=== PATIENT | female | born 1960 | race Caucasian/White ===

== ENCOUNTER 2019-01-27 10:24 | Inpatient (IN) ==
--- NOTE | 2019-01-27 08:50 | Discharge Summary ---
<Elmo Jose - Last Filed: 01/29/19 06:32> Orders not resulted at time of discharge: Pending orders 01/27/19 11:09 US anesthesia pain block [US] Stat 01/27/19 13:10 Surgical Pathology [PTH] Routine Date of Encounter: 01/29/19 - Discharge Diagnosis (1) Acute blood loss anemia Priority: Primary Status: Acute - Hospital Course Hospital course: Ms. Norris is a 58 year old female - Time Spent with Patient Total time spent providing and/or coordinating discharge services: - Discharge Medications Prescriptions: New RX: OxyCODONE Immed Rel [Roxicodone 5 MG] 5 mg PO Q6HR PRN 5 Days #20 tablet PRN Reason: Severe Pain RX: Aspirin Enteric Coated [Aspirin EC] 325 mg PO BID 10 Days #20 tablet.dr RX: Docusate Sodium [Colace] 100 mg PO BID 5 Days #10 capsule Continue RX: Omeprazole [PriLOSEC] 20 mg PO DAILY RX: LORazepam [Ativan] 1 mg PO DAILY PRN PRN Reason: Anxiety RX: carBAMazepine [Tegretol] 600 mg PO BID RX: Escitalopram [Lexapro] 20 mg PO DAILY RX: Supplies [SUPPLIES] 1 each .ROUTE QMONTH #10 each RX: Supplies [SUPPLIES] 1 each .ROUTE DAILY #4 each RX: Venlafaxine HCl [Effexor Xr] 75 mg PO DAILY #30 cap.er.24h RX: Letrozole [Femara] 2.5 mg PO DAILY #30 tablet RX: Alendronate Sodium [Fosamax] 70 mg PO TAVARES RX: Calcium Carbonate [Calcium] 500 mg PO DAILY RX: Albuterol Neb [Proventil Neb] 2.5 mg IH TID PRN PRN Reason: Shortness Of Breath RX: Multivitamin [One Daily] 1 each PO DAILY Home Medications: RX: LORazepam [Ativan] 1 mg PO DAILY PRN 03/16/16 [History] RX: Omeprazole [PriLOSEC] 20 mg PO DAILY 03/16/16 [History] RX: carBAMazepine [Tegretol] 600 mg PO BID 03/16/16 [History] RX: Escitalopram [Lexapro] 20 mg PO DAILY 06/01/16 [History] RX: Supplies [SUPPLIES] 1 each .ROUTE QMONTH #10 each 06/06/17 [Rx] RX: Supplies [SUPPLIES] 1 each .ROUTE DAILY #4 each 08/01/18 [Rx] RX: Venlafaxine HCl [Effexor Xr] 75 mg PO DAILY #30 cap.er.24h 10/18/18 [Rx] RX: Letrozole [Femara] 2.5 mg PO DAILY #30 tablet 11/26/18 [Rx] RX: Albuterol Neb [Proventil Neb] 2.5 mg IH TID PRN 01/27/19 [History] RX: Alendronate Sodium [Fosamax] 70 mg PO TAVARES 01/27/19 [History] RX: Calcium Carbonate [Calcium] 500 mg PO DAILY 01/27/19 [History] RX: Multivitamin [One Daily] 1 each PO DAILY 01/27/19 [History] RX: Aspirin Enteric Coated [Aspirin EC] 325 mg PO BID 10 Days #20 tablet. 01/29/19 [Rx] RX: Docusate Sodium [Colace] 100 mg PO BID 5 Days #10 capsule 01/29/19 [Rx] RX: OxyCODONE Immed Rel [Roxicodone 5 MG] 5 mg PO Q6HR PRN 5 Days #20 tablet 01/29/19 [Rx] Allergies/Adverse Reactions: Allergy/AdvReac Type Severity Reaction Status Date / Time bupropion [From Wellbutrin] Allergy Anaphylaxis Verified 01/27/19 11:24 celecoxib [From Celebrex] Allergy See Verified 01/27/19 11:24 Comments Penicillins [PCN] Allergy Hives Verified 01/27/19 11:24 ANAPHYLAXIS Pneumococcal Vaccine Allergy Rash Verified 01/27/19 11:24 Sulfa (Sulfonamide Allergy See Verified 01/27/19 11:24 Antibiotics) Comments Date of admission: 01/28/19 19:03 Primary care physician: Tomas Hearn DO Consults: 01/27/19 17:05 Consult to Nutrition [CONS] Routine Comment: Consulting Provider: NUTRITION Reason for Dietary Consult: Other Other:: Proper nutrition to facilitate wound healing Consult to Occupational Therapy [CONS] Routine Comment: Evaluate, develop and implement POC Reason for Consult: post knee surgery Does patient have active BEDREST order?: No Is patient medically & hemodynamically stable?: Yes Consult to Orthopedic Navigator [CONS] [CONS] Routine Consult to Physical Therapy [CONS] Routine Comment: Evaluate, develop and impliment POC Reason for Consult: post knee surgery Does patient have active BEDREST order?: No Is patient medically & hemodynamically stable?: Yes Consult to Software Support Technician [CONS] Routine Reason for SW Consult: post op joint replacement RT Post Op Consult [CONS] Routine Labs on day of discharge: Labs from last 24 hours 01/29/19 01/29/19 01/28/19 05:20 05:20 09:21 WBC 9.1 RBC 2.94 L Hgb 9.4 L Hct 26.9 L MCV 91.5 MCH 32.0 MCHC 34.9 RDW 12.7 Plt Count 184 MPV 9.6 Immature Gran % 0.4 Seg Neutrophils % 79.9 Lymphocytes % 10.7 Monocytes % 8.8 Eosinophils % 0.0 Basophils % 0.2 Neutrophils # 7.3 Lymphocytes # 1.0 Monocytes # 0.8 Eosinophils # 0.0 Basophils # 0.0 Sodium 129 L 136 Potassium 3.5 3.6 Chloride 93 L 97 L Carbon Dioxide 31 H 32 H BUN 6 8 Creatinine 0.46 L 0.55 L Est GFR ( Amer) > 60 > 60 Est GFR (Non-Af Amer) > 60 > 60 BUN/Creatinine Ratio 13 15 Glucose 154 H 161 H Calculated Osmolality 269 L 284 Calcium 8.8 8.6 01/28/19 09:21 WBC 8.1 RBC 3.26 L Hgb 10.3 L Hct 31.2 L MCV 95.7 MCH 31.6 MCHC 33.0 RDW 13.1 Plt Count 232 MPV 9.7 Immature Gran % 0.4 Seg Neutrophils % 79.5 Lymphocytes % 14.8 Monocytes % 5.0 Eosinophils % 0.1 Basophils % 0.2 Neutrophils # 6.4 Lymphocytes # 1.2 Monocytes # 0.4 Eosinophils # 0.0 Basophils # 0.0 Sodium Potassium Chloride Carbon Dioxide BUN Creatinine Est GFR ( Amer) Est GFR (Non-Af Amer) BUN/Creatinine Ratio Glucose Calculated Osmolality Calcium - Impressions ITS Impressions Knee X-Ray 01/27/19 01:00 IMPRESSION: Total knee arthropasty without acute hardware complication. D/ / Jake Eaton MD / Jake Eaton MD Interpreting Provider: Jake Eaton MD - Patient Status Disposition: Home Health Service Condition: Fair - Discharge Instructions Follow Up With: Valeria Andrew PAC [Physician Button Attaching Machine Operator] - 02/06/19 9:00 am Elmo Jose MD [Partnered Physician] - 02/26/19 5:10 pm Tomas Hearn DO [Primary Care Provider] - 02/04/19 11:30 am Additional Instructions: Discharge Instructions: Total Knee Replacement Please call [facility] ([phone]), your Primary Care Physician, or report to the Emergency Room if you have any of the following symptoms: Nausea, vomiting, fever greater that 101.5, swelling, chest pain, shortness of breath, increased pain/redness/drainage/odor for your incision site, numbness/tingling, or any other concerning symptoms. ACTIVITY:Weight-bearing as tolerated. You may progress off support (crutches or walker) as tolerated. Incentive Spirometer 10 times an hour. MEDICATIONS: Upon discharge resume your home medications. Take all the medications as prescribed. Take a stool softener if taking narcotic pain medications. Stool softeners are only effective if you drink enough fluids. Drink 6-8 glass of water or fluids a day, unless this is not allowed for another health problem. Despite using stool softeners, if you haven't had a bowel movement in 3 days, please switch to a gentle laxative. Gentle laxatives are sold over the counter. You should have a bowel movement within 24 hours, if not call the office. You will be discharged from the hospital with a prescription for pain medication. You are encouraged to decrease the use of narcotic pain medication as tolerated. Should you require a refill, please call the office. [facility] prescribes narcotic pain medication for only 4-6 weeks after surgery. If you require pain medication beyond this time period, you may be referred to your Primary Care Physician or to the Pain Clinic for further evaluation. Plan ahead for refills on pain medication as many narcotics either need to be picked up at the office or mailed. It is best to call 48-72 hours in advance of needing a prescription refill so you don't run out of medication. To help control the post-operative pain, you may take NSAIDs (Aleve,Advil, Motrin, Ibuprofen, Naprosyn) or Tylenol as prescribed on the bottle in addition to the pain medication. ANTICOAGULATION (blood thinners): Continue your Aspirin, Lovenox or Coumadin as prescribed to help prevent a blood clot in the leg or in the lungs. As long as your incision remains dry and you tolerate the NSAIDs (Aleve, Advil, Motrin, ibuprofen, naprosyn), it is OK to use the NSAIDS while you are taking your anticoagulation medication. Should your incision start to drain, stop the NSAID and contact our office. Common symptoms of blood clot in the legs include: localized pain, swelling, calf tenderness, redness or discoloration of the skin. Blood clot in the lung symptoms include: shortness of breath, rapid pulse, sweating, and chest pain that worsens with deep breathing, coughing up blood, lightheadedness, feelings of anxiety. If you experience any of these symptoms notify your physician immediately, go to the emergency room, or if having trouble breathing, call 911. WOUND CARE: Leave the dressing on for 7 to 10days. You may change the dressing if it becomes saturated greater than 50%. Do not get the dressing wet at anytime. Wash your hands with antibacterial soap, rinse and dry prior to any wound care. If you have lina the visiting nurse or rehab facility can remove the stapes 10-14 days after surgery and place steri-strips across the wound. Leave the steri-strips in place until they fall off on their won. You may let water from the shower run on top of the steri-strips. If you do not have a visiting nurse or rehab facility, you will need to return to the office at 10-14 days for the lina to be removed. If you have itching or redness around the dr essing call the office. FOLLOW-UP: Please follow up with your surgeon in the orthopedic clinic in 4 weeks from the day of surgery. If you have lina that need to be removed, you will need to come back to the office in 10-14 days from the day of surgery. <Valeria Andrew - Last Filed: 01/30/19 12:36> Date of Encounter: 01/30/19 Time of Encounter: 09:00 - Discharge Diagnosis (1) Arthritis of right knee Priority: Primary Status: Chronic (2) Status post total right knee replacement Priority: Primary Status: Acute (3) History of breast cancer Priority: Secondary Status: Chronic (4) Tobacco dependence Priority: Secondary Status: Chronic (5) COPD (chronic obstructive pulmonary disease) Priority: Secondary Status: Chronic Qualifiers: COPD type: unspecified COPD Qualified Code(s): J44.9 - Chronic obstructive pulmonary disease, unspecified (6) Prediabetes Priority: Secondary Status: Chronic (7) Osteoporosis Priority: Secondary Status: Chronic Qualifiers: Osteoporosis type: unspecified Presence of current pathological fracture: unspecified Qualified Code(s): M81.0 - Age-related osteoporosis without current pathological fracture (8) Obesity Priority: Secondary Status: Chronic Qualifiers: Obesity type: unspecified obesity type Obesity classification: unspecified obesity classification Serious obesity comorbidity presence: unspecified whether serious comorbidity present Qualified Code(s): E66.9 - Obesity, unspecified (9) Acute blood loss anemia Priority: Primary Status: Acute (10) Hyponatremia Priority: Primary Status: Acute - Hospital Course Hospital course: Ms. Norris is a 58 year old female Date of procedure: 01/27/19 Pre-op diagnosis: Right knee arthritis Post-op diagnosis: same Procedure: Right robotic-assisted Total knee replacement POD#3- Patient seen at bedside. A&Ox3 Dressing and incision c/d/i No calf tenderness, erythema, or warmth. Neurovascularly intact b/l LE. Labwork, vitals, and medications reviewed. Pain control: Adequate Participating in PT. All questions and concerns addressed. Educated on use of incentive spirometer, ambulation, and hydration. Patient educated on post-operative restrictions and care. Addressed: Patient developed hyponatremia postoperatively with mild improvement with 2 L fluid restriction. We will continue this fluid restriction after discharge and recheck labs for improvement. Patient also to see PCP next week for check up . Patient educated on warning signs necessitating urgent/emergent evaluation with relation to her lab work D/C plan: Home with home health today - Time Spent with Patient Total time spent providing and/or coordinating discharge services: Primary care physician: Tomas Hearn DO Discharging clinician: Elmo Jose Anticipated date of discharge: 01/30/19 - VTE Documentation of Mechanical Device: Venous foot pump, device - Patient Status Functional capacity at discharge: uses cane/walker Overall status at discharge: patient is progressing back to baseline - Diet and Activity Activity: as per physical therapy Diet: advance to your usual diet
[~2019-01-27 10:24] MED LIST: Ropivacaine/PF 0.5% 24.62 ML, EPINEPHrine 0.25 MG, Ketorolac 15 MG, Water for inj. (ste... IR ONE
[2019-01-27] MEDS ORDERED: Acetaminophen IV 1,000 MG/100 ML INFUS..BTL ONE (11:02)
--- NOTE | 2019-01-27 11:07 | Anesthesia Evaluation PreOp ---
Date of Encounter: 01/27/19 Time of Encounter: 11:04 - Past History Planned Operation: Right robotic total knee arthroplasty Cardiac History: Denies any Significant Hx Pulmonary History: Smoker, Pack/yr (43), COPD HOME HEALTH AIDE CAREGIVER History: Other (anxiety, depression, chronic back pain) Other Medical History: Other (hx of breast ca) Anesthesia History: No Prior Anesthetic Complications, Past Anesthesia (Aport insertion and removal, R mastectomy) Alcohol Use: none Drug use: none Medications and Allergies Albuterol Sulfate [Proair Hfa] 2 puff IH Q4H PRN 03/16/16 [History] LORazepam [Ativan] 1 mg PO BID PRN 03/16/16 [History] Omeprazole [PriLOSEC] 20 mg PO DAILY 03/16/16 [History] carBAMazepine [Tegretol] 600 mg PO BID 03/16/16 [History] Vitamin E (Dl,Tocopheryl Acet) [Vitamin E] 400 unit PO DAILY 04/07/16 [History] Escitalopram [Lexapro] 20 mg PO DAILY 06/01/16 [History] Calcium Carbonate/Vitamin D3 [Calcium 600 + Vit D Tablet] 1 each PO BID #60 tablet 02/22/17 [Rx] Supplies [SUPPLIES] 1 each .ROUTE QMONTH #10 each 06/06/17 [Rx] Alendronate Sodium [Fosamax] 70 mg PO QWEEK #12 tab 06/04/18 [Rx] Supplies [SUPPLIES] 1 each .ROUTE DAILY #4 each 08/01/18 [Rx] Venlafaxine HCl [Effexor Xr] 75 mg PO DAILY #30 cap.er.24h 10/18/18 [Rx] Letrozole [Femara] 2.5 mg PO DAILY #30 tablet 11/26/18 [Rx] OxyCODONE/APAP 5/325 [Percocet 5/325 MG] 1 each PO HS 30 Days #30 tablet 11/27/18 [Rx] Allergy/AdvReac Type Severity Reaction Status Date / Time bupropion [From Wellbutrin] Allergy Anaphylaxis Verified 01/27/19 11:24 celecoxib [From Celebrex] Allergy See Verified 01/27/19 11:24 Comments Penicillins [PCN] Allergy Hives Verified 01/27/19 11:24 ANAPHYLAXIS Pneumococcal Vaccine Allergy Rash Verified 01/27/19 11:24 Sulfa (Sulfonamide Allergy See Verified 01/27/19 11:24 Antibiotics) Comments - Meds/Allergy Pre-op Review Medications Reviewed: Yes Allergies Reviewed: Yes Beta Blockers on Current Med List: No Anesthesia Results - Labs Laboratory Tests 06/29/16 12/19/18 01/08/19 09:28 13:48 08:46 WBC 6.1 Hgb 12.4 Hct 36.1 Plt Count 192 PT INR APTT Sodium Potassium Chloride Carbon Dioxide BUN Whole Bld Creatinine 0.7 Creatinine POC Creatinine 0.60 BUN/Creatinine Ratio Glucose Est Mean Plasma Glucose Hemoglobin A1c 01/08/19 01/21/19 01/21/19 08:46 11:44 11:44 WBC Hgb Hct Plt Count PT 11.6 INR 1.0 APTT 35.6 Sodium 140 Potassium 3.5 Chloride 102 Carbon Dioxide 30 H BUN 8 Whole Bld Creatinine Creatinine 0.56 L POC Creatinine BUN/Creatinine Ratio 14 Glucose 126 H Est Mean Plasma Glucose 131 Hemoglobin A1c 6.2 H - Imaging EKG: report reviewed (SINUS RHYTHM ST DEVIATION AND MODERATE T-WAVE ABNORMALITY, CONSIDER LATERAL ISCHEMIA [-0.1+ mV T WAVE IN I/aVL/V5/V6] Electronically Signed On 01-22-2019 8:34:13 EDT by Jose Turk) Anesthesia Exam O2 Sat Height 1.68 m Weight 99.79 kg O2 Sat by Pulse Oximetry 93 Vital Signs Temp Pulse Resp BP Pulse Ox 98.4 F 83 18 137/80 93 01/27/19 10:59 01/27/19 10:59 01/27/19 10:59 01/27/19 10:59 01/27/19 10:59 Weight: 99kg NPO (# of Hours): >8 - HEENT Pupil (Motor): Pupils equal, EOMI Mallampati: II Teeth: Edentulous Oral Opening: Greater than 3 - HOME HEALTH AIDE CAREGIVER LOC: Oriented HOME HEALTH AIDE CAREGIVER Motor: Normal RUE, Normal LUE, Normal RLE, Normal LLE, Normal Face HOME HEALTH AIDE CAREGIVER Sensory: Normal: RUE, LUE, RLE, LLE, Face - Cardiac Rhythm: Regular - Pulmonary Breath Sounds: bilateral Clear Respiratory Effort: Symmetrical Anesthesia Assess/Plan ASA Score: 3 Level of consciousness: Cooperative Anesthetic Plan: General Regional Nerve Block Plan: Adductor canal (Right) Monitoring Plan: Standard Monitors Recovery Plan: PACU
--- NOTE | 2019-01-27 11:08 | History & Physical Report ---
Date of Encounter: 01/27/19 Time of Encounter: 11:07 24 Hour HP Update - Instructions Instructions: If the History and Physical is less than 30 days old and was completed prior to A.M. admission and or procedure and has NOT been updated on calendar day of procedure please complete this update prior to performing procedure. - Update Patient reports changes in Medical Condition: No Changes in examination, assessment, or condition: No Changes in Medication: No Preop tests/diagnostics Reviewed: Yes Surgery Remains Indicated: Yes Consent for Planned Operative Procedure(s) Verified: Yes - Pre-Operative Checklist Preoperative Checklist Indicated: No Prophylactic Antibiotic Ordered: Yes Is VTE Prophylaxis Indicated?: Yes
[2019-01-27] MEDS ORDERED: *HR* OxyCODONE Immed Rel 5 MG TABLET PO PRN (11:12)
[2019-01-27] MEDS ORDERED: *HR* Promethazine 25 MG/ML VIAL IVP PRN ×2 (11:12→17:05)
[2019-01-27] MEDS ORDERED: Ondansetron 4 MG/2 ML VIAL IVP ONE (11:12)
[2019-01-27] MEDS ORDERED: Ringers Solution, Lactated 1,000 ML IVC SCH ×2 (11:15→17:05)
[2019-01-27] MEDS ORDERED: Clindamycin 900 MG/50 ML 900 MG/50 ML IV.SOLN IVPB ONE (11:19)
[2019-01-27] MEDS ORDERED: Albuterol 2.5 MG/3 ML NEBULIZER IH ONE (11:22)
[2019-01-27] MEDS ORDERED: *HR* Midazolam HCl 2 MG/2 ML VIAL ONE (11:26)
[2019-01-27] MEDS ORDERED: *HR* FentaNYL (PF) 100 MCG/2 ML VIAL ONE ×2 (11:26→12:31)
[2019-01-27] MEDS ORDERED: Lidocaine -MPF 2% 2 ML VIAL ONE (11:29)
[2019-01-27] MEDS ORDERED: *HR* Propofol 200 MG/20 ML VIAL IVP ONE (11:29)
[2019-01-27] MEDS ORDERED: Ethanol\\Acetic Acid\\Na Ace\\Ben 1,000 ML IRRIG.SOLN IR ONE (11:47)
[2019-01-27] MEDS ORDERED: ROPIVACAINE/PF/NS SYRINGE INTRAART ONE (11:50)
--- NOTE | 2019-01-27 12:19 | Anesthesia Procedures ---
Date of Encounter: 01/27/19 Time of Encounter: 12:12 Procedures: Anesthesia - Nerve Block Procedure Date: 01/27/19 Time: 12:12 Allergies/Adv Reactions: see emr Pre-op Diagnosis: right knee OA Surgical Procedure: right TKA robo Checklist: Correct Patient Identifier, Correct procedure, History checked Correct side: Right Blood Thinner: No Monitor Applied: EKG, BP, Pulse Oximetry Supplemental Oxygen via Nasal Cannula (L/min): 2 Sedation: Versed (mg): 2 Sedation: Fentanyl (mcg): 100 Indication: Post Op Analgesia Pre-op Neuro Deficits: No Block Type: Other (adductor canal 20ml 0.25% ropi w/ 8mg decadron) Catheter placed: No Sterile Technique: Yes Ultrasound used: Yes Anatomy identified: Yes Visual spread of Local: Yes Neuro Stimulation: No Blood on Needle Aspiration: No Smooth Injection of Local: Yes Pain with Injection of Local: No Prep: Chlorhexadine Needle: 21 x 100 mm Stimuplex Local: Ropivacaine, Other (decadron) Volume (cc): 20 Number of Attempts: 1 Complications: None/effective block Vitals: Vital Signs/O2 Sat/Glucose, Most Recent Temp Pulse Resp BP Pulse Ox 98.4 F 81 16 141/86 98 01/27/19 10:59 01/27/19 12:13 01/27/19 12:13 01/27/19 12:13 01/27/19 12:13 Blood Glucose* 124
[2019-01-27] MEDS ORDERED: Ondansetron 4 MG/2 ML VIAL ONE (12:29)
[2019-01-27] MEDS ORDERED: Dexamethasone 4 MG/ML VIAL ONE ×2 (12:29→15:06)
[2019-01-27] MEDS ORDERED: Ketorolac 30 MG/ML VIAL ONE (12:30)
[2019-01-27] MEDS ORDERED: *HR* HYDROMORPHONE 2 MG/ML VIAL ONE (12:36)
--- NOTE | 2019-01-27 13:08 | Orthopedic Operative Note ---
Date of procedure: 01/27/19 Pre-op diagnosis: Right knee arthritis Post-op diagnosis: same Procedure: Procedure: Right robotic-assisted Total knee replacement Estimated blood loss: 200 cc Hardware: Metal and polyethylene replacement. [place] Femur: 3 Tibia: 4 TS insert: 9 Patella: 36 Exam Under anesthesia: 8 degrees flexion contracture 8 degree varus as calculated by the robot full flexion and no instability Procedural Notes: Grade 4 arthritic changes medial compartment grade 3 arthritic changes patellofemoral joint lateral femoral condyle Operative procedure: The patient was brought to the operating room and placed on the operating room table. After general anesthesia was administered the operative knee was examined. Findings were noted in the exam under anesthesia. The operative extremity was prepped and draped in sterile surgical fashion. The patient received IV antibiotics prior to skin incision. A standard midline incision was made centered over the patella. The incision was made through the skin and subcutaneous tissue. A medial parapatellar tendon approach was performed. Care was taken to preserve tissue along the medial aspect of the patella. And to protect the patella tendon. The deep MCL was released off the medial tibia. The infra patella fat pad was excised. The patella was everted and cut was made at the level of the insertion of the quadriceps and patella tendon. The patella was sized the guide was seated and the lug holes are drilled. Knee was brought into flexion. Patient noted to have patient noted to have Grade 4 arthritic changes medial compartment grade 3 arthritic changes patellofemoral joint lateral femoral condyle. Steinmann pins were placed in the tibia and the femur for the tibial and femoral arrays respectively. Checkpoints were also placed in the tibia and the femur for calculation purposes. The knee including the femur and the tibial registered. Osteophytes, ACL and PCL were excised at this point. Extension and flexion were assessed with a valgus stress components were adjusted on the computer to balance the knee. Femoral cuts were made first with robotic assistance, these included the anterior cut posterior cuts chamfer cuts. Tibial cut was then performed with robotic assistance as well. Bone fragments were removed, as well as the medial and lateral meniscus. The size 3 femoral guide was seated box cut was made lug holes are drilled. The size 4 tibial tray was seated and prepared with the fin cutter. Trial reduction with the 9 TS Sophia revealed extension of 0 degree and 6 degree varus full flexion. No varus valgus instability. Trial reduction revealed excellent patella tracking. All trial components were removed all bony surfaces were irrigated. The Tibia was seated followed by the femur, The selected Sophia size was seated and secured patella. Patient had similar findings for motion and stability. The knee was closed by the PA. The knee was then irrigated out with 2 L of pulse irrigation. The extensor mechanism was closed with #2 FiberWire suture and #2 PDS suture. The subcutaneous tissue was then irrigated and closed deep with #1 PDS suture superficially with 0 PDS suture and skin was closed with zip tie The patient was then placed in a sterile dressing and a postoperative brace extubated and transferred to recovery room in stable condition. Anesthesia: spinal Surgeon: Elmo Jose Was there an pet care assistant present: No Estimated blood loss (cc): 200 Condition: stable Disposition: PACU
[2019-01-27] MEDS ORDERED: KETAMINE HCL 50 MG/ML SYRINGE IV ONE (13:11)
[2019-01-27] MEDS: *HR* FentaNYL (PF) 100 MCG/2 ML VIAL IVP PRN ×2 (14:12→14:22)
[2019-01-27 14:37] LABS: Hematocrit 34.2 % (35.3-44.9); Hemoglobin 11.5 g/dL (11.5-15.4)
[2019-01-27] MEDS: *HR* Meperidine 25 MG/ML SYRINGE IVP PRN ×2 (15:02→16:02)
[2019-01-27] MEDS ORDERED: *HR* PHENYLEPHRINE 1,000 MCG/10 ML SYRINGE IVP ONE (15:06)
--- NOTE | 2019-01-27 16:13 | Anesthesia Evaluation Post Op ---
Date of Encounter: 01/27/19 Time of Encounter: 16:12 - Vital Signs Vital Signs: Vital Signs/O2 Sat, Most Current Temp Pulse Resp BP Pulse Ox 98.2 F 83 12 138/76 98 01/27/19 16:10 01/27/19 16:10 01/27/19 16:10 01/27/19 16:10 01/27/19 16:10 - Lungs Lungs: Clear Ascult./Percussion - Airway Airway: Non-obstructed - Cardiovascular Regular Rate - Mental Status Mental Status: Alert & Oriented, Answers Appropriately - Pain Pain Scale: 2 Pain Scale used: Numeric (1 - 10) - Nausea Vomiting Nausea Vomiting: Not Present - Hydration Hydration: Ice chips, Has not voided - Discharge PostOp Status: Transfer Patient to floor
[2019-01-27] MEDS ORDERED: *HR* LORazepam 1 MG TABLET PO PRN (17:05)
[2019-01-27] MEDS ORDERED: Temazepam 15 MG CAPSULE PO PRN (17:05)
[2019-01-27] MEDS ORDERED: Ondansetron 4 MG/2 ML VIAL IVP PRN (17:05)
[2019-01-27] MEDS ORDERED: Naloxone 0.4 MG/ML INJ IVP PRN (17:05)
[2019-01-27] MEDS ORDERED: MOM Conc 10 ML UD.LIQ PO PRN (17:05)
[2019-01-27] MEDS ORDERED: Sennosides 8.6 MG TABLET PO PRN (17:05)
[2019-01-27] MEDS: Ascorbic Acid 500 MG TABLET PO SCH (18:42)
[2019-01-27] MEDS: *HR* OxyCODONE Immed Rel 5 MG TABLET PO PRN (18:42)
[2019-01-27] MEDS: *HR* Enoxaparin 30 MG/0.3 ML SYRINGE SQ SCH (18:42)
[2019-01-27] MEDS: HYDROcodone BIT/Homatropine 5 MG TABLET PO PRN (20:24)
[2019-01-27] MEDS: Clindamycin 900 MG/50 ML 900 MG/50 ML IV.SOLN IVPB SCH (20:24)
[2019-01-27] MEDS: carBAMazepine 200 MG TABLET PO SCH (20:24)
[2019-01-27] MEDS: Nicotine 14 MG PATCH.TD24 TD SCH (20:25)
[2019-01-27] MEDS: Albuterol 2.5 MG/3 ML NEBULIZER IH PRN (20:39)
[2019-01-28] MEDS: Clindamycin 900 MG/50 ML 900 MG/50 ML IV.SOLN IVPB SCH (03:00)
[2019-01-28] MEDS: *HR* OxyCODONE Immed Rel 5 MG TABLET PO PRN ×5 (03:00→22:18)
[2019-01-28] MEDS: *HR* Enoxaparin 30 MG/0.3 ML SYRINGE SQ SCH ×2 (05:31→16:55)
--- NOTE | 2019-01-28 06:26 | Orthopedics Progress Note ---
Date of Encounter: 01/28/19 Time of Encounter: 06:25 Subjective Interval history: Patient was seen this morning doing well without complaints. Afebrile vital signs stable. Operative extremity: Neurovascularly intact Dressing clean dry and intact Calves nontender Assessment and plan: Continue with postoperative care Objective Vital signs: Vital Signs Temp Pulse Resp BP Pulse Ox 01/28/19 02:49 98.5 F 82 18 143/83 97 01/28/19 00:14 98.5 F 76 16 142/89 98 01/27/19 20:43 16 94 01/27/19 19:33 98.7 F 81 18 144/82 98 01/27/19 17:53 98.1 F 81 12 138/80 98 01/27/19 17:00 98.2 F 81 12 142/82 94 01/27/19 16:50 75 12 139/82 95 01/27/19 16:40 97.8 F 81 12 143/82 97 01/27/19 16:30 80 12 138/82 97 01/27/19 16:20 81 12 127/71 97 01/27/19 16:10 98.2 F 83 12 138/76 98 01/27/19 16:00 80 12 142/80 96 01/27/19 15:50 89 12 133/83 95 01/27/19 15:40 97.8 F 87 12 130/67 94 01/27/19 15:30 81 12 127/72 95 01/27/19 15:20 80 12 132/71 95 01/27/19 15:10 98.9 F 84 12 120/82 94 01/27/19 15:00 85 12 134/81 96 01/27/19 14:50 82 12 128/67 93 01/27/19 14:40 98.3 F 86 12 119/74 94 01/27/19 14:30 89 14 131/72 91 01/27/19 14:20 92 14 120/82 92 01/27/19 14:10 98.1 F 89 14 123/93 94 01/27/19 14:00 89 14 136/81 98 01/27/19 13:50 93 14 143/61 99 01/27/19 13:40 98.8 F 86 20 152/77 100 01/27/19 12:13 81 16 141/86 98 01/27/19 12:10 80 16 154/85 98 04/22/19 12:07 86 16 144/86 93 01/27/19 10:59 98.4 F 83 18 137/80 93 Intake and Output 01/27/19 01/27/19 01/28/19 15:59 23:59 07:59 Intake Total 450 / 450 350 / 350 Output Total 200 / 200 0 / 0 0 / 0 Balance -200 / -200 450 / 450 350 / 350 Intake: IV Fluids 50 / 50 Cleocin Premix 900 MG/50 ML 900 50 / 50 mg In 50 ml @ 50 mls/hr IVPB Q8H OLIVA Rx#:[id number] Oral 400 / 400 350 / 350 Output: Urine 0 / 0 0 / 0 Estimated Blood Loss 200 / 200 Other: # Voids 1 1 Weight 99.79 kg 107.08 kg Blood Glucose* 124 Patient Weight 01/28/19 23:59 Weight 107.08 kg - Labs CBC & BMP: 01/27/19 14:25 Labs: Abnormal lab results Hct 34.2 % (35.3-44.9) L 01/27/19 14:25 POC Glucose 124 mg/dL (70-99) H 01/27/19 11:57 Consult Discharge Plan - Plan Referrals: Tomas Hearn DO [Primary Care Provider] -
[2019-01-28] MEDS: carBAMazepine 200 MG TABLET PO SCH ×2 (08:15→20:28)
[2019-01-28] MEDS: Nicotine 14 MG PATCH.TD24 TD SCH (08:15)
[2019-01-28] MEDS: Venlafaxine XR (24 HR) 75 MG CAP.ER.24H PO SCH (08:15)
[2019-01-28] MEDS: Ascorbic Acid 500 MG TABLET PO SCH ×2 (08:16→16:55)
[2019-01-28] MEDS: Multivit/Ca/Min/Fe/FA 1 TAB TABLET PO SCH (08:16)
[2019-01-28] MEDS ORDERED: NON-FORMULARY MEDICATION 1 EACH EACH (Multivitamin [One Daily] 1 EACH) PO SCH (09:00)
[2019-01-28] MEDS: traMADol 50 MG TABLET PO PRN ×3 (10:01→23:38)
[2019-01-28] MEDS: Albuterol 2.5 MG/3 ML NEBULIZER IH PRN ×2 (10:03→19:31)
[2019-01-28 10:18] LABS: Basophils % 0.2 %; Eosinophils % 0.1 %; Hematocrit 31.2 % (35.3-44.9); Hemoglobin 10.3 g/dL (11.5-15.4); Immature Granulocytes % 0.4 % (0-4); Lymphocytes # 1.2 K/mcL (0.6-4.6); Lymphocytes % 14.8 %; Mean Corpuscular Hemoglobin 31.6 pg (28.0-33.3); Mean Corpuscular Volume 95.7 fL (83.0-100.0); Mean Platelet Volume 9.7 fL (9.4-12.4); Monocytes # 0.4 K/mcL (0.0-1.3); Neutrophils # 6.4 K/mcL (1.6-8.9); Platelet Count 232 K/mcL (140-400); Red Blood Count 3.26 M/mcL (3.82-4.97); Red Cell Distribution Width 13.1 % (11.5-14.5); Segmented Neutrophils % 79.5 %
[2019-01-28 10:31] LABS: BUN/Creatinine Ratio 15 (6-26); Blood Urea Nitrogen 8 mg/dL (6-20); Calcium 8.6 mg/dL (8.6-10.3); Carbon Dioxide 32 mEq/L (23-29); Chloride 97 mEq/L (98-107); Glucose 161 mg/dL (70-105); Osmolality,Calculated 284 (280-300); Potassium 3.6 mEq/L (3.5-5.1); Sodium 136 mEq/L (136-145); eGFR For Non-African Americans > 60 (> 60)
[2019-01-28] MEDS: Letrozole 2.5 MG TABLET PO SCH (12:22)
[2019-01-28] MEDS: HYDROcodone BIT/Homatropine 5 MG TABLET PO PRN (20:28)
[2019-01-29] MEDS: HYDROcodone BIT/Homatropine 5 MG TABLET PO PRN ×2 (01:26→05:56)
[2019-01-29] MEDS: *HR* OxyCODONE Immed Rel 5 MG TABLET PO PRN ×4 (03:06→22:36)
[2019-01-29 05:41] LABS: Basophils % 0.2 %; Hematocrit 26.9 % (35.3-44.9); Hemoglobin 9.4 g/dL (11.5-15.4); Immature Granulocytes % 0.4 % (0-4); Lymphocytes % 10.7 %; Mean Corpuscular HGB Conc 34.9 g/dL (31.6-35.5); Mean Corpuscular Volume 91.5 fL (83.0-100.0); Mean Platelet Volume 9.6 fL (9.4-12.4); Monocytes # 0.8 K/mcL (0.0-1.3); Monocytes % 8.8 %; Neutrophils # 7.3 K/mcL (1.6-8.9); Platelet Count 184 K/mcL (140-400); Red Blood Count 2.94 M/mcL (3.82-4.97); Red Cell Distribution Width 12.7 % (11.5-14.5); Segmented Neutrophils % 79.9 %
[2019-01-29] MEDS: *HR* Enoxaparin 30 MG/0.3 ML SYRINGE SQ SCH ×2 (05:56→18:19)
[2019-01-29 06:00] LABS: BUN/Creatinine Ratio 13 (6-26); Blood Urea Nitrogen 6 mg/dL (6-20); Calcium 8.8 mg/dL (8.6-10.3); Carbon Dioxide 31 mEq/L (23-29); Chloride 93 mEq/L (98-107); Glucose 154 mg/dL (70-105); Osmolality,Calculated 269 (280-300); Potassium 3.5 mEq/L (3.5-5.1); Sodium 129 mEq/L (136-145); eGFR For Non-African Americans > 60 (> 60)
--- NOTE | 2019-01-29 06:32 | Orthopedics Progress Note ---
Date of Encounter: 01/29/19 Time of Encounter: 06:31 Subjective Interval history: Patient was seen this morning doing well without complaints. Afebrile vital signs stable. Operative extremity: Neurovascularly intact Dressing clean dry and intact Calves nontender Assessment and plan: Continue with postoperative care Hemoglobin 9.4 plan for discharge today Objective Vital signs: Vital Signs Temp Pulse Resp BP Pulse Ox 01/29/19 03:07 99.3 F 100 20 154/76 94 01/28/19 23:45 99.0 F 99 18 173/79 94 01/28/19 20:26 93 157/89 01/28/19 19:32 18 93 01/28/19 19:09 98.9 F 93 18 177/89 94 01/28/19 15:11 97.9 F 86 12 132/73 96 01/28/19 11:07 98.7 F 80 14 130/76 95 01/28/19 10:03 16 95 01/28/19 07:22 98.1 F 89 12 109/72 98 Intake and Output 01/28/19 01/28/19 01/29/19 15:59 23:59 07:59 Intake Total 240 / 240 1050 / 1050 150 / 150 Output Total 0 / 0 0 / 0 Balance 240 / 240 1050 / 1050 150 / 150 Intake: Oral 240 / 240 1050 / 1050 150 / 150 Output: Urine 0 / 0 0 / 0 Other: Meal Lunch Percent of Meal Consumed 100% # Voids 1 1 1 - Labs CBC & BMP: 01/29/19 05:20 01/29/19 05:20 Labs: Abnormal lab results RBC 2.94 M/mcL (3.82-4.97) L 01/29/19 05:20 Hgb 9.4 g/dL (11.5-15.4) L 01/29/19 05:20 Hct 26.9 % (35.3-44.9) L 01/29/19 05:20 Sodium 129 mEq/L (136-145) L 01/29/19 05:20 Chloride 93 mEq/L (98-107) L 01/29/19 05:20 Carbon Dioxide 31 mEq/L (23-29) H 01/29/19 05:20 Creatinine 0.46 mg/dL (0.60-1.20) L 01/29/19 05:20 Glucose 154 mg/dL (70-105) H 01/29/19 05:20 POC Glucose 124 mg/dL (70-99) H 01/27/19 11:57 Calculated Osmolality 269 (280-300) L 01/29/19 05:20 Consult Discharge Plan - Plan Referrals: Tomas Hearn DO [Primary Care Provider] -
[2019-01-29] MEDS: Venlafaxine XR (24 HR) 75 MG CAP.ER.24H PO SCH (08:02)
[2019-01-29] MEDS: Ascorbic Acid 500 MG TABLET PO SCH ×2 (08:02→18:19)
[2019-01-29] MEDS: carBAMazepine 200 MG TABLET PO SCH ×2 (08:02→22:36)
[2019-01-29] MEDS: Multivit/Ca/Min/Fe/FA 1 TAB TABLET PO SCH (08:02)
[2019-01-29] MEDS: Nicotine 14 MG PATCH.TD24 TD SCH (08:03)
[2019-01-29] MEDS: Letrozole 2.5 MG TABLET PO SCH (09:01)
[2019-01-29] MEDS: Albuterol 2.5 MG/3 ML NEBULIZER IH PRN ×2 (09:32→15:59)
[2019-01-29] MEDS: traMADol 50 MG TABLET PO PRN (13:18)
--- NOTE | 2019-01-29 16:25 | Event Note ---
Date of Encounter: 01/28/19 Time of Encounter: 13:15 Date of procedure: 01/27/19 Pre-op diagnosis: Right knee arthritis Post-op diagnosis: same Procedure: Right robotic-assisted Total knee replacement POD#1 Patient seen at bedside. A&Ox3 Dressing and incision c/d/i No calf tenderness, erythema, or warmth. Neurovascularly intact b/l LE. Labwork, vitals, and medications reviewed. Pain control: Adequate Participating in PT. All questions and concerns addressed. Educated on use of incentive spirometer, ambulation, and hydration. Patient educated on post-operative restrictions and care. Addressed: see above. D/C plan: ECF awaiting approval
--- NOTE | 2019-01-29 16:27 | Event Note ---
Date of Encounter: 01/29/19 Time of Encounter: 11:50 Date of procedure: 01/27/19 Pre-op diagnosis: Right knee arthritis Post-op diagnosis: same Procedure: Right robotic-assisted Total knee replacement POD#2 Patient seen at bedside. A&Ox3 Dressing and incision c/d/i No calf tenderness, erythema, or warmth. Neurovascularly intact b/l LE. Labwork, vitals, and medications reviewed. *Patient noted to have hyponatremia with sodium of 129. Will order recheck - if continues to drop will place fluid restriction with recheck tomorrow. Pain control: Adequate Participating in PT. All questions and concerns addressed. Educated on use of incentive spirometer, ambulation, and hydration. Patient educated on post-operative restrictions and care. Addressed: see above. D/C plan: Patient refusing ECF - improved with therapy - home with home health if sodium improved today or tomorrow pending lab
--- NOTE | 2019-01-29 16:33 | Physician Discharge Referral ---
Addendum entered and electronically signed by RICHAR Lei 01/30/19 09:02: Continue with daily 2 liter fluid restriction for the next 1 week Addendum entered and electronically signed by RICHAR Lei 01/30/19 09:01: H/H and BMP to be collected 01/31 Original Note: Home Health/Hosp Referral Info Transfer to: Home Health Attending Provider: Dr. Elmo Jose - Diagnosis (1) Status post total right knee replacement Priority: Primary Status: Acute (2) Arthritis of right knee Priority: Primary Status: Chronic (3) COPD (chronic obstructive pulmonary disease) Priority: Secondary Status: Chronic (4) History of breast cancer Priority: Secondary Status: Chronic (5) Obesity Priority: Secondary Status: Chronic (6) Osteoporosis Priority: Secondary Status: Chronic (7) Prediabetes Priority: Secondary Status: Chronic (8) Tobacco dependence Priority: Secondary Status: Chronic (9) Hyponatremia Priority: Primary Status: Acute (10) Acute blood loss anemia Priority: Primary Status: Acute - Respiratory Orders Smoking Cessation: Smoking cessation has been advised. For more information, call the [place] Tobacco Quit Line at 8-912-DMUB-NOW. - Dressing/Wound Care Site: right knee Type of Dressing/Treatments w/Frequency: Opsite placed. Keep dressing intact until first follow up appointment. If greater than 50% saturated, notify office, remove dressing and place appropriate dressing back in place. Leave Zipline intact. Opsite dressing is water resistant, not water-proof. OK to shower, but do not get dressing wet. - Diet/Nutrition Diet/Nutrition Orders: Regular - Activity Activity Orders: Up ad ramirez, Ambulate, Chair, Walker - Services Needed Following services are medically necessary services: Nursing, Home Health Aide, Physical Therapy, Occupational Therapy, Med Social Work Home Care Orders: Total Knee replacement Precautions x 6 weeks Apply cold therapy wrap 3-6x/day for 20 minutes at a time. Encourage ambulation throughout the day and incentive spirometer 10x/hour. Elevate affected extremity above heart as tolerated. Brace: Wear knee immobilizer at night x 2 weeks. Other Treatments: BMP needed on 02/06 - Transfer Medications Prescriptions: OxyCODONE Immed Rel [Roxicodone 5 MG] 5 mg PO Q6HR PRN 5 Days #20 tablet PRN Reason: Severe Pain Aspirin Enteric Coated [Aspirin EC] 325 mg PO BID 10 Days #20 tablet. Docusate Sodium [Colace] 100 mg PO BID 5 Days #10 capsule Home Medications: LORazepam [Ativan] 1 mg PO DAILY PRN 03/16/16 [History] Omeprazole [PriLOSEC] 20 mg PO DAILY 03/16/16 [History] carBAMazepine [Tegretol] 600 mg PO BID 03/16/16 [History] Escitalopram [Lexapro] 20 mg PO DAILY 06/01/16 [History] Supplies [SUPPLIES] 1 each .ROUTE QMONTH #10 each 06/06/17 [Rx] Supplies [SUPPLIES] 1 each .ROUTE DAILY #4 each 08/01/18 [Rx] Venlafaxine HCl [Effexor Xr] 75 mg PO DAILY #30 cap.er.24h 10/18/18 [Rx] Letrozole [Femara] 2.5 mg PO DAILY #30 tablet 11/26/18 [Rx] Albuterol Neb [Proventil Neb] 2.5 mg IH TID PRN 01/27/19 [History] Alendronate Sodium [Fosamax] 70 mg PO TAVRAES 01/27/19 [History] Calcium Carbonate [Calcium] 500 mg PO DAILY 01/27/19 [History] Multivitamin [One Daily] 1 each PO DAILY 01/27/19 [History] Aspirin Enteric Coated [Aspirin EC] 325 mg PO BID 10 Days #20 tablet. 01/29/19 [Rx] Docusate Sodium [Colace] 100 mg PO BID 5 Days #10 capsule 01/29/19 [Rx] OxyCODONE Immed Rel [Roxicodone 5 MG] 5 mg PO Q6HR PRN 5 Days #20 tablet 01/29/19 [Rx] Allergies/Adverse Reactions: Allergy/AdvReac Type Severity Reaction Status Date / Time bupropion [From Wellbutrin] Allergy Anaphylaxis Verified 01/27/19 11:24 celecoxib [From Celebrex] Allergy See Verified 01/27/19 11:24 Comments Penicillins [PCN] Allergy Hives Verified 01/27/19 11:24 ANAPHYLAXIS Pneumococcal Vaccine Allergy Rash Verified 01/27/19 11:24 Sulfa (Sulfonamide Allergy See Verified 01/27/19 11:24 Antibiotics) Comments Certification: Further, I certify that my clinical findings support that this patient is homebound (i.e. absences from home require considerable and taxing effort and are for medical reasons or cheondoism services or infrequently or short duration when for other reasons) because: Homebound Reason: Post-surgery restriction and or conditions limit ability to leave home Attestation: My signature below is to certify that this patient is under my care and that I, or nurse practitioner, or a physician boiler assistant operator working with me, has a [id number] encounter with this patient.
[2019-01-30] MEDS: Albuterol 2.5 MG/3 ML NEBULIZER IH PRN (01:37)
[2019-01-30] MEDS: *HR* OxyCODONE Immed Rel 5 MG TABLET PO PRN ×2 (05:02→12:24)
[2019-01-30] MEDS: *HR* Enoxaparin 30 MG/0.3 ML SYRINGE SQ SCH (05:02)
[2019-01-30 05:57] LABS: Hematocrit 25.4 % (35.3-44.9); Hemoglobin 8.9 g/dL (11.5-15.4); Mean Corpuscular Hemoglobin 31.7 pg (28.0-33.3); Mean Corpuscular Volume 90.4 fL (83.0-100.0); Mean Platelet Volume 9.7 fL (9.4-12.4); Platelet Count 186 K/mcL (140-400); Red Blood Count 2.81 M/mcL (3.82-4.97); Red Cell Distribution Width 13.1 % (11.5-14.5)
--- NOTE | 2019-01-30 06:28 | Orthopedics Progress Note ---
Date of Encounter: 01/30/19 Time of Encounter: 06:28 - Assessment and Plan (1) Acute blood loss anemia Current Visit: Yes Status: Acute Subjective Interval history: Patient was seen this morning doing well without complaints. Afebrile vital signs stable. Operative extremity: Neurovascularly intact Dressing clean dry and intact Calves nontender Assessment and plan: Continue with postoperative care Hemoglobin 8.9, hyponatremia awaiting for normalization, plan for discharge today Objective Vital signs: Vital Signs Temp Pulse Pulse Resp BP Pulse Ox 01/30/19 04:43 97.9 F 90 16 125/67 93 01/30/19 01:37 16 92 01/29/19 23:03 90 01/29/19 22:52 98.6 F 101 17 128/70 92 01/29/19 19:09 98.8 F 95 16 149/84 97 01/29/19 15:59 16 95 01/29/19 15:21 98.6 F 95 17 162/93 96 01/29/19 11:10 98.2 F 98 22 169/80 93 01/29/19 09:32 18 92 01/29/19 07:23 98.4 F 98 16 151/83 94 Intake and Output 01/29/19 01/29/19 01/30/19 15:59 23:59 07:59 Intake Total 520 / 520 615 / 615 Balance 520 / 520 615 / 615 Intake: Oral 520 / 520 615 / 615 Other: Meal Breakfast Dinner Percent of Meal Consumed 25% 70% # Voids 1 1 Weight 107.1 kg Patient Weight 01/30/19 23:59 Weight 107.1 kg - Labs CBC & BMP: 01/30/19 05:27 01/29/19 11:18 Labs: Abnormal lab results RBC 2.81 M/mcL (3.82-4.97) L 01/30/19 05:27 Hgb 8.9 g/dL (11.5-15.4) L 01/30/19 05:27 Hct 25.4 % (35.3-44.9) L 01/30/19 05:27 Sodium 128 mEq/L (136-145) L 01/29/19 11:18 Chloride 93 mEq/L (98-107) L 01/29/19 05:20 Carbon Dioxide 31 mEq/L (23-29) H 01/29/19 05:20 Creatinine 0.46 mg/dL (0.60-1.20) L 01/29/19 05:20 Glucose 154 mg/dL (70-105) H 01/29/19 05:20 POC Glucose 124 mg/dL (70-99) H 01/27/19 11:57 Calculated Osmolality 269 (280-300) L 01/29/19 05:20 Consult Discharge Plan - Plan Referrals: Valeria Andrew PAC [Physician Investment Accountant] - 02/06/19 9:00 am Elmo Jose MD [Partnered Physician] - 02/26/19 5:10 pm Tomas Hearn DO [Primary Care Provider] - 02/18/19 3:30 pm Prescriptions: Aspirin Enteric Coated [Aspirin EC] 325 mg PO BID 10 Days #20 tablet. Docusate Sodium [Colace] 100 mg PO BID 5 Days #10 capsule OxyCODONE Immed Rel [Roxicodone 5 MG] 5 mg PO Q6HR PRN 5 Days #20 tablet PRN Reason: Severe Pain
[2019-01-30 07:03] LABS: BUN/Creatinine Ratio 16 (6-26); Blood Urea Nitrogen 7 mg/dL (6-20); Calcium 8.8 mg/dL (8.6-10.3); Carbon Dioxide 32 mEq/L (23-29); Chloride 91 mEq/L (98-107); Glucose 153 mg/dL (70-105); Osmolality,Calculated 269 (280-300); Potassium 3.3 mEq/L (3.5-5.1); Sodium 129 mEq/L (136-145); eGFR For Non-African Americans > 60 (> 60)
[2019-01-30] MEDS: Multivit/Ca/Min/Fe/FA 1 TAB TABLET PO SCH (08:51)
[2019-01-30] MEDS: HYDROcodone BIT/Homatropine 5 MG TABLET PO PRN (08:51)
[2019-01-30] MEDS: carBAMazepine 200 MG TABLET PO SCH (08:51)
[2019-01-30] MEDS: Ascorbic Acid 500 MG TABLET PO SCH (08:51)
[2019-01-30] MEDS: Letrozole 2.5 MG TABLET PO SCH (08:51)
[2019-01-30] MEDS: Nicotine 14 MG PATCH.TD24 TD SCH (08:52)
[2019-01-30] MEDS: Venlafaxine XR (24 HR) 75 MG CAP.ER.24H PO SCH (08:52)
[2019-01-30 12:48] VITALS: BP 131/85
[2019-02-02] MEDS ORDERED: NON-FORMULARY MEDICATION 1 EACH EACH (Alendronate Sodium [Fosamax] 70 MG) PO SCH (12:26)
== END 2019-01-30 12:53 | disposition home health service (06) | DRG 470 ==
LOC: SAMDAY 10:24 → 3NENU 17:07 → INTOOBSV 01-28 19:03
PROVIDERS: ADMIT Orthopaedic Surgery; ATTEND Orthopaedic Surgery

== ENCOUNTER 2019-02-19 11:40 | Inpatient (IN) ==
[2019-02-19] MEDS ORDERED: Isovue-370 500 ML BOTTLE IVP ONE (12:14)
--- NOTE | 2019-02-19 12:21 | Emergency Department Note ---
Disposition Clinical Impression: Sepsis, Community acquired pneumonia, Hypomagnesemia, Hypokalemia, Anemia, UTI (urinary tract infection) COPD (chronic obstructive pulmonary disease) Qualifiers: COPD type: unspecified COPD Qualified Code(s): J44.9 - Chronic obstructive pulmonary disease, unspecified Disposition: Admitted As Inpatient Condition: Fair General Adult HPI - General Chief complaint: ED Fever Stated complaint: Fever SOB, Sx knee replaced 01/27 Time Seen by Provider: 02/19/19 11:51 Nursing Notes Reviewed: Yes Vital Signs Reviewed: Yes - History of Present Illness HPI Narrative: Patient presented with the chief complaint of fever with associated shortness of breath. Her fever started 4 days ago and has been intermittent since then, shortness of breath started this morning. She has not taken anything for it, nothing makes her symptoms better or worse. Other than shortness of breath no associated symptoms. She does have right knee pain from a recent total knee arthroplasty but states the knee pain has not changed the last 4 days. She denies any purulence, drainage, erythema around the right knee surgical site. She denies any productive cough but does acknowledge vomiting clear drainage. Past medical history significant for COPD, GERD, small bowel obstruction from intra-abdominal adhesions, previous neuroendocrine tumor and previous breast cancer status post right mastectomy. She also had a previous blood clot in a port from chemotherapy and was on Xarelto for a time but no longer. Pain Scale: 10 - Related Data Home Medications Medication Instructions Recorded Confirmed LORazepam [Ativan] 1 mg PO DAILY PRN 03/16/16 01/27/19 Omeprazole [PriLOSEC] 20 mg PO DAILY 03/16/16 01/27/19 carBAMazepine [Tegretol] 600 mg PO BID 03/16/16 01/27/19 Escitalopram [Lexapro] 20 mg PO DAILY 06/01/16 01/27/19 Albuterol Neb [Proventil Neb] 2.5 mg IH TID PRN 01/27/19 01/27/19 Alendronate Sodium [Fosamax] 70 mg PO TAVARES 01/27/19 01/27/19 Calcium Carbonate [Calcium] 500 mg PO DAILY 01/27/19 01/27/19 Multivitamin [One Daily] 1 each PO DAILY 01/27/19 01/27/19 Previous Rx's Medication Instructions Recorded Supplies [SUPPLIES] 1 each .ROUTE QMONTH #10 each 06/06/17 Supplies [SUPPLIES] 1 each .ROUTE DAILY #4 each 08/01/18 Venlafaxine HCl [Effexor Xr] 75 mg PO DAILY #30 cap.er.24h 10/18/18 Letrozole [Femara] 2.5 mg PO DAILY #30 tablet 11/26/18 Allergies Allergy/AdvReac Type Severity Reaction Status Date / Time bupropion [From Wellbutrin] Allergy Anaphylaxis Verified 01/27/19 11:24 celecoxib [From Celebrex] Allergy See Verified 01/27/19 11:24 Comments Penicillins [PCN] Allergy Hives Verified 01/27/19 11:24 ANAPHYLAXIS Pneumococcal Vaccine Allergy Rash Verified 01/27/19 11:24 Sulfa (Sulfonamide Allergy See Verified 01/27/19 11:24 Antibiotics) Comments Past Medical History - Past Medical History Medical history: Reports: arthritis, cancer, COPD, fibromyalgia, GERD, thyroid disease, other Surgical history: Reports: appendectomy, cholecystectomy, colectomy, hysterectomy, orthopedic, other, other Psychiatric history: Reports: anxiety, depression - Social History Smoking Status: Current every day smoker Smokeless Tobacco Status: No Alcohol use: Reports: none Drug use: Reports: none Physical Exam - General General appearance: alert, in distress - Head Head exam: atraumatic, normocephalic - Eye Eye exam: Present: normal appearance, PERRL, EOMI - Neck Neck exam: Present: normal inspection, full ROM - Chest Chest inspection: Present: symmetric chest wall rise - Respiratory Respiratory exam: Present: wheezes (Significant diffuse scattered expiratory wheeze, poor expansion and air movement) - Cardiovascular Cardiovascular exam: Present: normal rhythm, tachycardia, normal heart sounds - Abdominal Exam Abdominal exam: Present: soft, Non-Tender - Expanded Lower Extremity Exam Knee exam: Present: other (Left knee is wrapped in Kennedy wrap, nontender to palpation. Right knee has a clear bandage present over the midline anterior surgical site. The surgical site underneath is observed to be clean and dry and intact without drainage or purulence noted, there is no erythema/induration/fl uctuance. The knee is mildly tender to palpation.) Lower leg exam: Present: normal inspection, swelling (Bilateral nonpitting edema present). Absent: tenderness, erythema Ankle exam: Present: normal inspection - Neurological Exam Neurological exam: Present: alert, oriented X3 - Psychiatric Psychiatric exam: Present: anxious - Skin Skin exam: Present: warm, dry Course Course Narrative: Patient presented with chief complaint of fever and shortness of breath. Patient does meet SIRS criteria based on fever and tachycardia and there is concern at this time for sepsis secondary to possible infection in right total knee arthroplasty site. Other possible source of infection are potential pneumonia, UTI. Based on tachycardia and shortness of breath and previous blood clot there is also concern for pulmonary embolism. We will start with basic labs, lactate, fluids per sepsis protocol, CTA of the chest. We will also order BMP, blood cultures, flu swab, troponin, mag/falls, UA, coagulation studies. - Reevaluation(s) Reevaluation #1: Labs demonstrating leukocytosis, hypokalemia, hypomagnesemia, normal lactic acid. Vitals are stable and she is showing clinical improvement with fluids, DuoNeb's, Tylenol. At this point patient is clinically septic but not in shock, first liter fluid given, we will continue the second liter at maintenance dosage. CTA chest pending to evaluate for pneumonia versus pulmonary embolism. Pending results will reevaluate and consider admission to the hospitalist service. Time: 14:13 Vital Signs Temperature 103.1 F H 02/19/19 11:49 Pulse Rate 109 02/19/19 11:49 Respiratory Rate 22 02/19/19 11:49 Blood Pressure 146/79 02/19/19 11:49 O2 Sat by Pulse Oximetry 92 02/19/19 11:49 Temperature 103.1 F H 02/19/19 14:35 Pulse Rate 95 02/19/19 14:35 Respiratory Rate 20 02/19/19 14:35 Blood Pressure 134/62 02/19/19 14:35 O2 Sat by Pulse Oximetry 99 02/19/19 14:35 Oxygen Delivery Oxygen Delivery Room Air Medical Decision Making - MDM Narrative Medical decision making narrative: Labs demonstrating leukocytosis, hypokalemia, hypomagnesemia, elevated alkaline phosphatase and bilirubin. Patient has had some clinical improvement with DuoNeb's, normal saline, Tylenol. Chest CTA demonstrating significant right upper lobe pneumonia. Urinalysis positive for likely UTI. Due to presentation with sepsis secondary to underlying pneumonia and UTI this patient will benefit from admission to medical service for continued IV antibiotics and supportive treatment. Discussed with the hospitalist who agreed to admit to inpatient medical services for sepsis pneumonia. Right upper quadrant ultrasound negative for acute process. - Lab Data Result diagrams: 02/19/19 12:32 02/19/19 12:32 Lab Results 02/19/19 02/19/19 02/19/19 Range/Units 12:32 12:32 12:32 WBC 14.7 H (4.3-11.1) K/mcL RBC 3.07 L (3.82-4.97) M/mcL Hgb 9.6 L (11.5-15.4) g/dL Hct 28.3 L (35.3-44.9) % MCV 92.2 (83.0-100.0) fL MCH 31.3 (28.0-33.3) pg MCHC 33.9 (31.6-35.5) g/dL RDW 13.2 (11.5-14.5) % Plt Count 247 (140-400) K/mcL MPV 9.4 (9.4-12.4) fL Immature Gran % 1.0 (0-4) % Seg Neutrophils % 89.5 % Lymphocytes % 3.9 % Monocytes % 5.4 % Eosinophils % 0.0 % Basophils % 0.2 % Neutrophils # 13.1 H (1.6-8.9) K/mcL Lymphocytes # 0.6 (0.6-4.6) K/mcL Monocytes # 0.8 (0.0-1.3) K/mcL Eosinophils # 0.0 (0.0-0.6) K/mcL Basophils # 0.0 (0.0-0.2) K/mcL PT 16.8 H (9.4-12.1) Seconds INR 1.5 APTT 31.6 (26.0-36.0) Seconds Sodium 132 L (136-145) mEq/L Potassium 2.9 L (3.5-5.1) mEq/L Chloride 94 L (98-107) mEq/L Carbon Dioxide 30 H (23-29) mEq/L BUN 5 L (6-20) mg/dL Creatinine 0.49 L (0.60-1.20) mg/dL Est GFR ( Amer) > 60 (> 60) Est GFR (Non-Af Amer) > 60 (> 60) BUN/Creatinine Ratio 10 (6-26) Glucose 147 H (70-105) mg/dL Calculated Osmolality 274 L (280-300) Lactic Acid (0.5-2.2) mmol/L Calcium 9.3 (8.6-10.3) mg/dL Phosphorus 1.3 L (2.7-4.5) mg/dL Magnesium 1.5 L (1.6-2.6) mg/dL Total Bilirubin 1.1 H (0.3-1.0) mg/dL Direct Bilirubin 0.5 H (0.0-0.2) mg/dL Indirect Bilirubin 0.6 (0.0-1.2) mg/dL AST 11 L (13-39) Units/L ALT 14 (7-52) Units/L Alkaline Phosphatase 160 H (34-104) Units/L Troponin I < 0.03 (< 0.04) ng/mL B-Natriuretic Peptide (Less than 100) pg/mL Serum Total Protein 6.4 (6.4-8.9) g/dL Albumin 3.7 (3.5-5.7) g/dL Globulin 2.7 (2.4-3.5) g/dL Albumin/Globulin Ratio 1.4 (1.1-2.2) Lipase < 3 L (11-82) Units/L Random Cortisol 37.1 mcg/dl Urine Color (Yellow) Urine Clarity (Clear) Urine pH (5.0-8.0) pH Units Ur Specific [place] (1.010-1.025) Urine Protein (Neg-Trace) mg/dL Urine Glucose (UA) (Normal) mg/dL Urine Ketones (Negative) mg/dL Urine Blood (Negative) Urine Nitrite (Negative) Urine Bilirubin (Negative) Urine Urobilinogen (Normal) mg/dL Ur Leukocyte Esterase (Negative) Urine Microscopic RBC (0-3) per hpf Urine Microscopic WBC (0-3) per hpf Ur Squamous Epith Cells (None-Few) per lpf Urine Bacteria (None-Few) per hpf Hyaline Casts (None-Few) per lpf Ur Culture Indicated? (NO) 02/19/19 02/19/19 02/19/19 Range/Units 12:32 12:32 13:12 WBC (4.3-11.1) K/mcL RBC (3.82-4.97) M/mcL Hgb (11.5-15.4) g/dL Hct (35.3-44.9) % MCV (83.0-100.0) fL MCH (28.0-33.3) pg MCHC (31.6-35.5) g/dL RDW (11.5-14.5) % Plt Count (140-400) K/mcL MPV (9.4-12.4) fL Immature Gran % (0-4) % Seg Neutrophils % % Lymphocytes % % Monocytes % % Eosinophils % % Basophils % % Neutrophils # (1.6-8.9) K/mcL Lymphocytes # (0.6-4.6) K/mcL Monocytes # (0.0-1.3) K/mcL Eosinophils # (0.0-0.6) K/mcL Basophils # (0.0-0.2) K/mcL PT (9.4-12.1) Seconds INR APTT (26.0-36.0) Seconds Sodium (136-145) mEq/L Potassium (3.5-5.1) mEq/L Chloride (98-107) mEq/L Carbon Dioxide (23-29) mEq/L BUN (6-20) mg/dL Creatinine (0.60-1.20) mg/dL Est GFR ( Amer) (> 60) Est GFR (Non-Af Amer) (> 60) BUN/Creatinine Ratio (6-26) Glucose (70-105) mg/dL Calculated Osmolality (280-300) Lactic Acid 1.1 (0.5-2.2) mmol/L Calcium (8.6-10.3) mg/dL Phosphorus (2.7-4.5) mg/dL Magnesium (1.6-2.6) mg/dL Total Bilirubin (0.3-1.0) mg/dL Direct Bilirubin (0.0-0.2) mg/dL Indirect Bilirubin (0.0-1.2) mg/dL AST (13-39) Units/L ALT (7-52) Units/L Alkaline Phosphatase (34-104) Units/L Troponin I (< 0.04) ng/mL B-Natriuretic Peptide 358 H (Less than 100) pg/mL Serum Total Protein (6.4-8.9) g/dL Albumin (3.5-5.7) g/dL Globulin (2.4-3.5) g/dL Albumin/Globulin Ratio (1.1-2.2) Lipase (11-82) Units/L Random Cortisol mcg/dl Urine Color Raquel A (Yellow) Urine Clarity Clear (Clear) Urine pH 6.0 (5.0-8.0) pH Units Ur Specific [place] 1.025 (1.010-1.025) Urine Protein 100 H (Neg-Trace) mg/dL Urine Glucose (UA) Normal (Normal) mg/dL Urine Ketones 15 H (Negative) mg/dL Urine Blood Trace H (Negative) Urine Nitrite Positive A (Negative) Urine Bilirubin Moderate H (Negative) Urine Urobilinogen 2.0 H (Normal) mg/dL Ur Leukocyte Esterase Small H (Negative) Urine Microscopic RBC 0-3 (0-3) per hpf Urine Microscopic WBC 5-15 H (0-3) per hpf Ur Squamous Epith Cells Many H (None-Few) per lpf Urine Bacteria Many H (None-Few) per hpf Hyaline Casts Moderate H (None-Few) per lpf Ur Culture Indicated? YES A (NO) Attestation Statement - Attestation Attestation: I, Sixto Laura DO, examined this patient [id number] and my medical decision-making was reviewed with Moises Buenrostro PGY-1, Resident Physician. I agree with the documented findings, disposition and treatment plan as described except to the extent set forth below. I personally supervised and was present for the capps/critical portions of the procedures completed by the resident documented below. Please see my progress notes for details.
[2019-02-19] MEDS ORDERED: Acetaminophen 325 MG TABLET PO ONE (12:23)
[2019-02-19] MEDS ORDERED: Ipratropium/Albuterol Neb 3 ML IH ONE ×2 (12:23→13:14)
[2019-02-19] MEDS ORDERED: methylPREDNISolone 125 MG/2 ML VIAL IVP ONE (12:23)
--- NOTE | 2019-02-19 12:23 | Emergency Department Note ---
Disposition Clinical Impression: Hypomagnesemia, Hypokalemia Sepsis Qualifiers: Sepsis type: sepsis due to unspecified organism Qualified Code(s): A41.9 - Sepsis, unspecified organism Community acquired pneumonia Qualifiers: Laterality: right Lung location: upper lobe of lung Qualified Code(s): J18.1 - Lobar pneumonia, unspecified organism COPD (chronic obstructive pulmonary disease) Qualifiers: COPD type: unspecified COPD Qualified Code(s): J44.9 - Chronic obstructive pulmonary disease, unspecified Disposition: Admitted As Inpatient Condition: Fair Referrals: Tomas Hearn DO [Primary Care Provider] - Forms: ED Satisfaction Letter Time of Disposition: 14:36 General Adult HPI - General Chief complaint: ED Fever Stated complaint: Fever SOB, Sx knee replaced 01/27 Time Seen by Provider: 02/19/19 11:51 - History of Present Illness Pain Scale: 10 - Related Data Home Medications Medication Instructions Recorded Confirmed LORazepam [Ativan] 1 mg PO DAILY PRN 03/16/16 01/27/19 Omeprazole [PriLOSEC] 20 mg PO DAILY 03/16/16 01/27/19 carBAMazepine [Tegretol] 600 mg PO BID 03/16/16 01/27/19 Escitalopram [Lexapro] 20 mg PO DAILY 06/01/16 01/27/19 Albuterol Neb [Proventil Neb] 2.5 mg IH TID PRN 01/27/19 01/27/19 Alendronate Sodium [Fosamax] 70 mg PO TAVARES 01/27/19 01/27/19 Calcium Carbonate [Calcium] 500 mg PO DAILY 01/27/19 01/27/19 Multivitamin [One Daily] 1 each PO DAILY 01/27/19 01/27/19 Previous Rx's Medication Instructions Recorded Supplies [SUPPLIES] 1 each .ROUTE QMONTH #10 each 06/06/17 Supplies [SUPPLIES] 1 each .ROUTE DAILY #4 each 08/01/18 Venlafaxine HCl [Effexor Xr] 75 mg PO DAILY #30 cap.er.24h 10/18/18 Letrozole [Femara] 2.5 mg PO DAILY #30 tablet 11/26/18 Allergies Allergy/AdvReac Type Severity Reaction Status Date / Time bupropion [From Wellbutrin] Allergy Anaphylaxis Verified 01/27/19 11:24 celecoxib [From Celebrex] Allergy See Verified 01/27/19 11:24 Comments Penicillins [PCN] Allergy Hives Verified 01/27/19 11:24 ANAPHYLAXIS Pneumococcal Vaccine Allergy Rash Verified 01/27/19 11:24 Sulfa (Sulfonamide Allergy See Verified 01/27/19 11:24 Antibiotics) Comments Past Medical History - Past Medical History Medical history: Reports: arthritis, cancer, COPD, fibromyalgia, GERD, thyroid disease, other Surgical history: Reports: appendectomy, cholecystectomy, colectomy, hysterectomy, orthopedic, other, other Psychiatric history: Reports: anxiety, depression - Social History Smoking Status: Current every day smoker Smokeless Tobacco Status: No Alcohol use: Reports: none Drug use: Reports: none Course Vital Signs Temperature 103.1 F H 02/19/19 11:49 Pulse Rate 109 02/19/19 11:49 Respiratory Rate 22 02/19/19 11:49 Blood Pressure 146/79 02/19/19 11:49 O2 Sat by Pulse Oximetry 92 02/19/19 11:49 Temperature 103.1 F H 02/19/19 11:49 Pulse Rate 95 02/19/19 14:05 Respiratory Rate 15 02/19/19 14:05 Blood Pressure 134/62 02/19/19 14:05 O2 Sat by Pulse Oximetry 93 02/19/19 14:05 Oxygen Delivery Oxygen Delivery Room Air Medical Decision Making - Lab Data Result diagrams: 02/19/19 12:32 02/19/19 12:32 Lab Results 02/19/19 02/19/19 02/19/19 Range/Units 12:32 12:32 12:32 WBC 14.7 H (4.3-11.1) K/mcL RBC 3.07 L (3.82-4.97) M/mcL Hgb 9.6 L (11.5-15.4) g/dL Hct 28.3 L (35.3-44.9) % MCV 92.2 (83.0-100.0) fL MCH 31.3 (28.0-33.3) pg MCHC 33.9 (31.6-35.5) g/dL RDW 13.2 (11.5-14.5) % Plt Count 247 (140-400) K/mcL MPV 9.4 (9.4-12.4) fL Immature Gran % 1.0 (0-4) % Seg Neutrophils % 89.5 % Lymphocytes % 3.9 % Monocytes % 5.4 % Eosinophils % 0.0 % Basophils % 0.2 % Neutrophils # 13.1 H (1.6-8.9) K/mcL Lymphocytes # 0.6 (0.6-4.6) K/mcL Monocytes # 0.8 (0.0-1.3) K/mcL Eosinophils # 0.0 (0.0-0.6) K/mcL Basophils # 0.0 (0.0-0.2) K/mcL PT 16.8 H (9.4-12.1) Seconds INR 1.5 APTT 31.6 (26.0-36.0) Seconds Sodium 132 L (136-145) mEq/L Potassium 2.9 L (3.5-5.1) mEq/L Chloride 94 L (98-107) mEq/L Carbon Dioxide 30 H (23-29) mEq/L BUN 5 L (6-20) mg/dL Creatinine 0.49 L (0.60-1.20) mg/dL Est GFR ( Amer) > 60 (> 60) Est GFR (Non-Af Amer) > 60 (> 60) BUN/Creatinine Ratio 10 (6-26) Glucose 147 H (70-105) mg/dL Calculated Osmolality 274 L (280-300) Lactic Acid (0.5-2.2) mmol/L Calcium 9.3 (8.6-10.3) mg/dL Phosphorus 1.3 L (2.7-4.5) mg/dL Magnesium 1.5 L (1.6-2.6) mg/dL Total Bilirubin 1.1 H (0.3-1.0) mg/dL Direct Bilirubin 0.5 H (0.0-0.2) mg/dL Indirect Bilirubin 0.6 (0.0-1.2) mg/dL AST 11 L (13-39) Units/L ALT 14 (7-52) Units/L Alkaline Phosphatase 160 H (34-104) Units/L Troponin I < 0.03 (< 0.04) ng/mL B-Natriuretic Peptide (Less than 100) pg/mL Serum Total Protein 6.4 (6.4-8.9) g/dL Albumin 3.7 (3.5-5.7) g/dL Globulin 2.7 (2.4-3.5) g/dL Albumin/Globulin Ratio 1.4 (1.1-2.2) Random Cortisol 37.1 mcg/dl Urine Color (Yellow) Urine Clarity (Clear) Urine pH (5.0-8.0) pH Units Ur Specific [place] (1.010-1.025) Urine Protein (Neg-Trace) mg/dL Urine Glucose (UA) (Normal) mg/dL Urine Ketones (Negative) mg/dL Urine Blood (Negative) Urine Nitrite (Negative) Urine Bilirubin (Negative) Urine Urobilinogen (Normal) mg/dL Ur Leukocyte Esterase (Negative) 02/19/19 02/19/19 02/19/19 Range/Units 12:32 12:32 13:12 WBC (4.3-11.1) K/mcL RBC (3.82-4.97) M/mcL Hgb (11.5-15.4) g/dL Hct (35.3-44.9) % MCV (83.0-100.0) fL MCH (28.0-33.3) pg MCHC (31.6-35.5) g/dL RDW (11.5-14.5) % Plt Count (140-400) K/mcL MPV (9.4-12.4) fL Immature Gran % (0-4) % Seg Neutrophils % % Lymphocytes % % Monocytes % % Eosinophils % % Basophils % % Neutrophils # (1.6-8.9) K/mcL Lymphocytes # (0.6-4.6) K/mcL Monocytes # (0.0-1.3) K/mcL Eosinophils # (0.0-0.6) K/mcL Basophils # (0.0-0.2) K/mcL PT (9.4-12.1) Seconds INR APTT (26.0-36.0) Seconds Sodium (136-145) mEq/L Potassium (3.5-5.1) mEq/L Chloride (98-107) mEq/L Carbon Dioxide (23-29) mEq/L BUN (6-20) mg/dL Creatinine (0.60-1.20) mg/dL Est GFR ( Amer) (> 60) Est GFR (Non-Af Amer) (> 60) BUN/Creatinine Ratio (6-26) Glucose (70-105) mg/dL Calculated Osmolality (280-300) Lactic Acid 1.1 (0.5-2.2) mmol/L Calcium (8.6-10.3) mg/dL Phosphorus (2.7-4.5) mg/dL Magnesium (1.6-2.6) mg/dL Total Bilirubin (0.3-1.0) mg/dL Direct Bilirubin (0.0-0.2) mg/dL Indirect Bilirubin (0.0-1.2) mg/dL AST (13-39) Units/L ALT (7-52) Units/L Alkaline Phosphatase (34-104) Units/L Troponin I (< 0.04) ng/mL B-Natriuretic Peptide 358 H (Less than 100) pg/mL Serum Total Protein (6.4-8.9) g/dL Albumin (3.5-5.7) g/dL Globulin (2.4-3.5) g/dL Albumin/Globulin Ratio (1.1-2.2) Random Cortisol mcg/dl Urine Color Raquel A (Yellow) Urine Clarity Clear (Clear) Urine pH 6.0 (5.0-8.0) pH Units Ur Specific [place] 1.025 (1.010-1.025) Urine Protein 100 H (Neg-Trace) mg/dL Urine Glucose (UA) Normal (Normal) mg/dL Urine Ketones 15 H (Negative) mg/dL Urine Blood Trace H (Negative) Urine Nitrite Positive A (Negative) Urine Bilirubin Moderate H (Negative) Urine Urobilinogen 2.0 H (Normal) mg/dL Ur Leukocyte Esterase Small H (Negative) Attestation Statement - Attestation Attestation: I, Sixto Laura DO, examined this patient [id number] and my medical decisi on-making was reviewed with Moises Buenrostro PGY-1, Resident Physician. I agree with the documented findings, disposition and treatment plan as described except to the extent set forth below. I personally supervised and was present for the capps/critical portions of the procedures completed by the resident documented below. Please see my progress notes for details. 58-year-old female presents emergency room with complaint of generalized malaise and fever productive cough shortness of breath and generalized malaise. He should not had her knee replaced about 25 days ago. She is been doing well at home since then. The daughter is a nurse and is been monitoring her leg and was not concerned about infection. Patient does have a history of COPD. She has been taking her breathing treatments at home. Today's the first time she had a productive master sputum. She denies any chest pain. Denies any nausea vomiting or diarrhea. Denies any headache or vision change. She has had fevers and chills along with shortness of breath here today. Patient's vital signs are concerning for septic-like presentation at this time. 2 large-bore IVs fluids including 3 L of normal saline will be provided. Antibiotic regimen will be started this time. Patient is concerning for pneumonia secondary to her history. She does have a right-sided previous mastectomy with scarring on the anterior chest wall. sHe has not had any active disease. She has been eating and drinking at baseline prior to the events here today. Daughter is with her at the bedside here stating that she is acting appropriately this time. Head is atraumatic. Mucous membranes are dry. Oropharynx is patent. Patient has no stridor no trismus. She does have diminished breath sounds on the right side with intermittent expiratory wheezing. Heart is regular but tachycardic. Abdomen is soft nontender nondistended. Extremities and pulses appear to be normal. The extremity at surgery was showing swelling distal to the surgical site but no redness warmth or irritation. Pulses distally in the DP and PT di stributions were intact and symmetrical bilaterally. Patient is concerning for septic-like presentation most concerning for pneumonia at this time. Detailed workup will be established at this point and then disposition will be determined. Patient will have sepsis evaluation master as well as IV a ntibiotics including vancomycin, Levaquin, aztreonam for her penicillin allergy. Patient is otherwise stable. Patient will most likely require admission once the workup and treatment course have been completed. Chest x-ray EKG labs including lactic acid and blood cultures will be ordered. Definitive management with possible CT angiography the chest will also be discussed. See detailed documentation of the physical exam, medical intervention, medical decision- making and disposition in the resident physician's note. No critical care applied the patient's treatment course at this time. 1300 EKG shows sinus tachycardia otherwise no other abnormalities. See the documentation of the detailed review in the resident physician's note. Chest x- ray shows possible right upper lobe infiltrate. Patient has had a mastectomy on that side so this could be scarring. Previous chest x-ray was from over 3 years ago which was unable to help differentiate at this time. CT angiography will be ordered to help rule out pulmonary emboli versus infection this point considering the most recent surgery as well as her described presentation. Patient does have a white blood cell count noted during the initial labs. Fluids are started this point the patient is feeling better. 1400 Patient does not show any acute signs of septic shock. Lactic acid as well as her blood pressure remained stable. 1 L of fluid will be given a 3rd liter will be held. Maintenance fluids will be started at that point. Patient does have an elevated BNP with no signs of pulmonary congestion at this point. Patient will be monitored here closely until the remainder the workup is completed admission processes established. 1430 Dr. Gandhi has reviewed the case in the emergency room at length. Patient has CT imaging confirms right upper lobe pneumonia with no visible signs of pulmonary emboli. Limited right upper quadrant ultrasound is been ordered at this time considering she has had a previous cholecystectomy. Concern is noted for the elevated bilirubin. Lipase was ordered as well. There is a delay in labs this time. We will discuss possible admission with the pending workup at this point. Patient is otherwise clinically stable. Patient will be monitored here in emergency department until the admission process is completed. 45 minutes of critical care applied the patient's treatment course secondary to multidisciplinary intervention and management.
[2019-02-19 12:52] LABS: Basophils % 0.2 %; Hematocrit 28.3 % (35.3-44.9); Hemoglobin 9.6 g/dL (11.5-15.4); Lymphocytes # 0.6 K/mcL (0.6-4.6); Lymphocytes % 3.9 %; Mean Corpuscular HGB Conc 33.9 g/dL (31.6-35.5); Mean Corpuscular Hemoglobin 31.3 pg (28.0-33.3); Mean Corpuscular Volume 92.2 fL (83.0-100.0); Mean Platelet Volume 9.4 fL (9.4-12.4); Monocytes # 0.8 K/mcL (0.0-1.3); Monocytes % 5.4 %; Neutrophils # 13.1 K/mcL (1.6-8.9); Platelet Count 247 K/mcL (140-400); Red Blood Count 3.07 M/mcL (3.82-4.97); Red Cell Distribution Width 13.2 % (11.5-14.5); Segmented Neutrophils % 89.5 %
[2019-02-19] MEDS: 0.9 % Sodium Chloride 1,000 ML IVC SCH ×3 (12:59→18:33)
[2019-02-19 13:01] LABS: INR 1.5; Prothrombin Time 16.8 Seconds (9.4-12.1)
[2019-02-19 13:04] LABS: Activated Partial Thrombo Time 31.6 Seconds (26.0-36.0)
--- NOTE | 2019-02-19 13:05 | Electrocardiograph Report ---
[facility] Test Date: 2019-02-19 Pat Name: Aide Norris Department: [id number] Room: Gender: F Assistant Drafter: : 1960 Requested By: Sixto Laura Order Number: [id number] Reading MD: Stas Patel Measurements Intervals [place] Rate: 106 P: 72 RI: 143 QRS: 82 QRSD: 110 T: 30 QT: 369 QTc: 490 Interpretive Statements Sinus tachycardia Consider right atrial enlargement Electronically Signed On 02-19-2019 13:03:50 EDT by Stas Patel
[2019-02-19 13:06] LABS: Alanine Aminotransferase 14 Units/L (7-52); Albumin 3.7 g/dL (3.5-5.7); Albumin/Globulin Ratio 1.4 (1.1-2.2); Alkaline Phosphatase 160 Units/L (34-104); Aspartate Amino Transferase 11 Units/L (13-39); BUN/Creatinine Ratio 10 (6-26); Bilirubin,Direct 0.5 mg/dL (0.0-0.2); Bilirubin,Indirect 0.6 mg/dL (0.0-1.2); Bilirubin,Total 1.1 mg/dL (0.3-1.0); Blood Urea Nitrogen 5 mg/dL (6-20); Calcium 9.3 mg/dL (8.6-10.3); Carbon Dioxide 30 mEq/L (23-29); Chloride 94 mEq/L (98-107); Globulin 2.7 g/dL (2.4-3.5); Glucose 147 mg/dL (70-105); Magnesium 1.5 mg/dL (1.6-2.6); Osmolality,Calculated 274 (280-300); Phosphorous 1.3 mg/dL (2.7-4.5); Potassium 2.9 mEq/L (3.5-5.1); Sodium 132 mEq/L (136-145); Total Protein 6.4 g/dL (6.4-8.9); Troponin I < 0.03 ng/mL (< 0.04); eGFR For Non-African Americans > 60 (> 60)
[2019-02-19] MEDS ORDERED: *HR* FentaNYL (PF) 100 MCG/2 ML VIAL IVP ONE (13:14)
[2019-02-19] MEDS ORDERED: 0.9 % Sodium Chloride 1,000 ML IVC ONE (14:09)
[2019-02-19 14:23] LABS: Bilirubin,Urine Moderate (Negative); Blood,Urine Trace (Negative); Clarity,Urine Clear (Clear); Glucose,Urine (UA) Normal (Normal); Ketones,Urine 15 mg/dL (Negative); Leukocyte Esterase,Urine Small (Negative); Nitrite,Urine Positive (Negative); Protein,Urine 100 mg/dL (Neg-Trace); Specific Gravity,Urine 1.025 (1.010-1.025)
[2019-02-19 14:24] LABS: Bacteria,Urine Many per hpf (None-Few); Hyaline Casts,Urine Moderate per lpf (None-Few); Squamous Epithelial Cell,Urine Many per lpf (None-Few)
[2019-02-19 14:28] LABS: Color,Urine Amber (Yellow)
[2019-02-19 14:52] LABS: RBC,Urine 0-3 per hpf (0-3)
[2019-02-19 15:05] LABS: Lipase < 3 Units/L (11-82)
[2019-02-19] MEDS ORDERED: Naloxone 0.4 MG/ML INJ IVP PRN (15:54)
--- NOTE | 2019-02-19 15:56 | Internal Med History&Physical ---
<FaithSatya G - Last Filed: 02/19/19 17:21> Date of Encounter: 02/19/19 Internal Medicine - H&P: Meds Omeprazole [PriLOSEC] 20 mg PO DAILY 03/16/16 [History] carBAMazepine [Tegretol] 600 mg PO BID 03/16/16 [History] Escitalopram [Lexapro] 20 mg PO DAILY 06/01/16 [History] Venlafaxine HCl [Effexor Xr] 75 mg PO DAILY #30 cap.er.24h 10/18/18 [Rx] Letrozole [Femara] 2.5 mg PO DAILY #30 tablet 11/26/18 [Rx] Calcium Carbonate [Calcium] 500 mg PO DAILY 01/27/19 [History] Multivitamin [One Daily] 1 tab PO DAILY 01/27/19 [History] Albuterol Neb [Proventil Neb] 2.5 mg IH TID PRN 02/19/19 [History] Alendronate Sodium [Fosamax] 70 mg PO TAVARES 02/19/19 [History] Allergy/AdvReac Type Severity Reaction Status Date / Time bupropion [From Wellbutrin] Allergy Anaphylaxis Verified 01/27/19 11:24 celecoxib [From Celebrex] Allergy See Verified 01/27/19 11:24 Comments Penicillins [PCN] Allergy Hives Verified 01/27/19 11:24 ANAPHYLAXIS Pneumococcal Vaccine Allergy Rash Verified 01/27/19 11:24 Sulfa (Sulfonamide Allergy See Verified 01/27/19 11:24 Antibiotics) Comments All Systems PM: A 10-system review of systems was performed and is negative for pertinent findings except as documented above in the HPI. Internal Med - H&P Results - Labs CBC & Chem 7: 02/19/19 12:32 02/19/19 12:32 Labs: Short CBC 02/19/19 Range/Units 12:32 WBC 14.7 H (4.3-11.1) K/mcL Hgb 9.6 L (11.5-15.4) g/dL Hct 28.3 L (35.3-44.9) % Plt Count 247 (140-400) K/mcL Neutrophils # 13.1 H (1.6-8.9) K/mcL BMP 02/19/19 12:32 Sodium 132 L Potassium 2.9 L Chloride 94 L Carbon Dioxide 30 H BUN 5 L Creatinine 0.49 L Glucose 147 H Calcium 9.3 Cardiac Enzymes 02/19/19 Range/Units 12:32 Troponin I < 0.03 (< 0.04) ng/mL Liver Function 02/19/19 Range/Units 12:32 Total Bilirubin 1.1 H (0.3-1.0) mg/dL Direct Bilirubin 0.5 H (0.0-0.2) mg/dL AST 11 L (13-39) Units/L ALT 14 (7-52) Units/L Alkaline Phosphatase 160 H (34-104) Units/L Albumin 3.7 (3.5-5.7) g/dL Urine 02/19/19 Range/Units 13:12 Urine Color Raquel A (Yellow) Urine Clarity Clear (Clear) Urine pH 6.0 (5.0-8.0) pH Units Ur Specific Ada 1.025 (1.010-1.025) Urine Protein 100 H (Neg-Trace) mg/dL Urine Glucose (UA) Normal (Normal) mg/dL - Impressions ITS Impressions Chest X-Ray 02/19/19 11:58 IMPRESSION: Right upper lobe pneumonia. Continued plain film follow-up recommended to ensure resolution. D/ / Michi Kc MD / Michi Kc MD Interpreting Provider: Michi Kc MD Chest CTA 02/19/19 12:14 IMPRESSION: No evidence for pulmonary emboli. Right upper lobe infiltrate consistent with pneumonia. Left adrenal adenoma. D/ / 02/19/2019 14:39:49 Terrance Chisholm MD / bcarter Interpreting Provider: Terrance Chisholm MD Liver Ultrasound 02/19/19 14:17 IMPRESSION: Unremarkable right upper quadrant ultrasound. D/ / Terrance Chisholm MD / Terrance Chisholm MD Interpreting Provider: Terrance Chisholm MD - Assessment and Plan (1) Urinary tract infection Current Visit: Yes Status: Suspected Qualifiers: Urinary tract infection type: acute cystitis Hematuria presence: without hematuria Qualified Code(s): N30.00 - Acute cystitis without hematuria (2) Obesity (BMI 30-39.9) Current Visit: No Status: Chronic (3) DVT prophylaxis Current Visit: No Status: Acute (4) Status post total right knee replacement Current Visit: No Status: Acute (5) Tobacco dependence Current Visit: No Status: Chronic (6) COPD (chronic obstructive pulmonary disease) Current Visit: Yes Status: Acute Qualifiers: COPD type: COPD with acute exacerbation Qualified Code(s): J44.1 - Chronic obstructive pulmonary disease with (acute) exacerbation (7) Hyponatremia Current Visit: Yes Status: Acute (8) Sepsis Current Visit: Yes Status: Acute Qualifiers: Sepsis type: sepsis due to unspecified organism Qualified Code(s): A41.9 - Sepsis, unspecified organism (9) Hypomagnesemia Current Visit: Yes Status: Acute (10) Hypokalemia Current Visit: Yes Status: Acute (11) Acute respiratory failure with hypoxia Current Visit: Yes Status: Acute (12) Hospital acquired PNA Current Visit: Yes Status: Acute (13) Hypophosphatasia Current Visit: Yes Status: Acute (14) Poor nutrition Current Visit: Yes Status: Acute - Time Spent With Patient Total time spent is greater than 50% in coordination of care (as documented) at patient's floor/unit and/or counseling patient: - Attending Attestation Patient seen and examined independently. Objective data has been reviewed including labs, micro, imaging, and ECGs. I agree with the plan of care as documented above by the resident, with the following comments: Aide Norris is a 58 F who p/w malaise, anorexia, and cough, with report of fever and hypoxia at home. Pt underwent TKA 3 weeks ago and was intubated at that time for the elective surgery, and tolerated cephalosporins at the time despite hx PCN anaphylaxis. Does report occasional choking sensation when eating. Here, febrile and tachycardic with hypoxia and with leukocytosis, lactate wnl. CTA negative for PE but does show RUL infiltrate suggestive of pneumonia. Labs also significant for hyponatremia, hypokalemia, hypochloremia, hypomagenesemia, and hypophosphatemia. Admitted with pneumonia, possibly aspiration v hospital acquired, causing sepsis and acute hypoxic respiratory harpreetpriscila lan complicated by numerous electrolyte abnormalities. Has been started on vanc and levaquin as well as aztreonam but this will be changed to cefepime. Follow blood cultures. Will check sputum, urine Ag's, and swallow eval. Continue MIVF NS@100 and replete K, Mg, P. <Maury Laguerre - Last Filed: 02/19/19 18:24> Date of Encounter: 02/19/19 Time of Encounter: 15:45 Internal Medicine - H&P: HPI Chief complaint: Fever Admitted From: Emergency Dept Plans for Post Hospital Care: Home History of present illness: Ms. Norris is a 58 year old female with history of recent right total knee replacement on 01/27/19, COPD, r. breast cancer s/p mastectomy who presents to the ED with fever for 4 days duration. The patient was recently in the hospital for a right total knee replacement on 01/27/19 which was uncomplicated in nature at that time. The patient's daughter says that for the past several days the patient has apparently been complaining of fever and chills which started on Sunday, however they got worse again yesterday. In addition of this she also apparently had low oxygen saturation yesterday however was not really complaining of any other symptoms at that time. The patient's daughter is a nurse who works on to [facility] typically, and she recommended that the patient use her nebulizer, which resulted in the patient coughing a little bit more. Apparently at that time she did have more sputum production and she does typically. In addition of this apparently the patient has had a very poor ap petite in the past week or 2 and has not been eating very much. The patient does apparently live with family including her , son, and some children. There are no other symptoms to be reported at this time. In the emergency department the patient did have a workup which included a chest x-ray demonstrating a right upper lobe pneumonia. He was followed up with a CTA of the chest showing significant right upper lobe infiltrates consistent with pneumonia without evidence of a pulmonary embolism. The patient also had labs which demonstrated a white blood cell count of 14.7k, hemoglobin 9.6, sodium 132, potassium 2.9, phosphorus 1.3, magnesium 1.5, and a urinalysis with positive nitrites and leukocyte esterase. In addition of this, the patient also had a fever of 103.1 as well as a heart rate of 109. The patient was admitted to medicine for further workup of sepsis, pneumonia and treatment of the above. Past Med Surg Social Fam HX - Past Medical History Medical history: arthritis, cancer, COPD, fibromyalgia, GERD, thyroid disease, other Additional medical history: IBS. PCOS. SMOKER. HIATAL HERNIA. THYROID NODULE. BREAST CANCER. GASTRIC ULCER Psychiatric history: anxiety, depression - Past Surgical History Surgical History: appendectomy, cholecystectomy, colectomy, hysterectomy, orthopedic, other, other Additional surgical history: tubal, carpal tunnel release, right knee partial meniscus, spinal fusion, right hemicolectomy, mastectomy - Social History Smoking Status: Current every day smoker Smokeless Tobacco Status: No Alcohol use: none Drug use: none - Family History Mother Living Status: Hx Family Cardiac Disorders: Yes (CHF) Hx Family GI Disorders: Yes (Colon polyps) Brother Living Status: Still Living Hx Family GI Disorders: Yes (Colon polyps) All Systems PM: A 10-system review of systems was performed and is negative for pertinent findings except as documented above in the HPI. Review of systems: Constitutional: Admits to fevers, chills, generalized fatigue Head/Neck: Denies TOBIAS, neck stiffness EENT: Denies vision changes/blurriness, rhinorrhea, congestion, sore throat CVS: Denies chest pain, palpitations, NATHAN, orthopnea, edema, PND Pulm: Admits to shortness of breath and cough with some sputum production. Denies hemoptysis, wheezing GI: Denies abdominal pain, nausea, vomiting, diarrhea, constipation, melena, hematemasis : Denies dysuria, increased frequency, urgency, hematuria Heme: Denies ease of bleeding or bruising MSK: Denies joint pain, limited ROM Skin: Denies rashes, ulcers, color changes Neuro: Denies TOBIAS, paresthesias, focal deficits, ataxia - Constitutional Vitals: Temp Pulse Resp BP Pulse Ox 103.1 F H 95 20 134/62 99 02/19/19 14:35 02/19/19 14:35 02/19/19 14:35 02/19/19 14:35 02/19/19 14:35 Exam: Gen: Vitals noted. No acute distress. Eyes: anicteric sclerae, moist conjunctivae; no lid-lag; Pupils equal and reactive to light HENT: Atraumatic; oropharynx clear with moist mucous membranes and no mucosal ulcerations; normal hard and soft palate Neck: Trachea midline; supple, no thyromegaly or lymphadenopathy Cardiac: RRR, no murmur, +S1/S2 Pulmonary: Diminished in the right upper quadrant, otherwise clear to auscultation Abdomen: soft, nontender, no guarding. No masses or hepatosplenomegaly MSK: ROM intact, no joint swelling noted Extremities: no BLE edema, nontender calf, no cyanosis or clubbing Skin: Normal temperature, turgor and texture; no rash, ulcers or subcutaneous nodules Neuro: moves all extremities, no focal deficits. Psych: Appropriate mood and behavior. A&Ox3 Internal Med - H&P Results - Labs CBC & Chem 7: 02/19/19 12:32 02/19/19 12:32 Labs: Short CBC 02/19/19 Range/Units 12:32 WBC 14.7 H (4.3-11.1) K/mcL Hgb 9.6 L (11.5-15.4) g/dL Hct 28.3 L (35.3-44.9) % Plt Count 247 (140-400) K/mcL Neutrophils # 13.1 H (1.6-8.9) K/mcL BMP 02/19/19 12:32 Sodium 132 L Potassium 2.9 L Chloride 94 L Carbon Dioxide 30 H BUN 5 L Creatinine 0.49 L Glucose 147 H Calcium 9.3 Cardiac Enzymes 02/19/19 Range/Units 12:32 Troponin I < 0.03 (< 0.04) ng/mL Liver Function 02/19/19 Range/Units 12:32 Total Bilirubin 1.1 H (0.3-1.0) mg/dL Direct Bilirubin 0.5 H (0.0-0.2) mg/dL AST 11 L (13-39) Units/L ALT 14 (7-52) Units/L Alkaline Phosphatase 160 H (34-104) Units/L Albumin 3.7 (3.5-5.7) g/dL Urine 02/19/19 Range/Units 13:12 Urine Color Raquel A (Yellow) Urine Clarity Clear (Clear) Urine pH 6.0 (5.0-8.0) pH Units Ur Specific Ada 1.025 (1.010-1.025) Urine Protein 100 H (Neg-Trace) mg/dL Urine Glucose (UA) Normal (Normal) mg/dL - Impressions ITS Impressions Chest X-Ray 02/19/19 11:58 IMPRESSION: Right upper lobe pneumonia. Continued plain film follow-up recommended to ensure resolution. D/ / Michi Kc MD / Michi Kc MD Interpreting Provider: Michi Kc MD Chest CTA 02/19/19 12:14 IMPRESSION: No evidence for pulmonary emboli. Right upper lobe infiltrate consistent with pneumonia. Left adrenal adenoma. D/ / 02/19/2019 14:39:49 Terrance Chisholm MD / [email or web address] Interpreting Provider: Terrance Chisholm MD Liver Ultrasound 02/19/19 14:17 IMPRESSION: Unremarkable right upper quadrant ultrasound. D/ / Terrance Chisholm MD / Terrance Chisholm MD Interpreting Provider: Terrance Chisholm MD - Assessment and Plan (1) Hospital acquired PNA Current Visit: Yes Status: Acute Assessment and plan: Hospital-acquired pneumonia, possibly ventilator associated Patient was recently admitted for total right knee replacement on 01/27/19 Presents now with fever, chills, tachycardia, hypoxic respiratory failure and sepsis CT chest demonstrates right upper lobe pneumonia with extensive infiltration and consolidation Blood cultures pending, sputum culture pending, urine antigens pending Received aztreonam, Levaquin, vancomycin in the ED Continue maintenance fluids at this time Continuous pulse oximetry at this time Vancomycin, cefepime, Levaquin day 1 De-escalate antibiotics pending cultures Duo nebs every 4 hours scheduled and when necessary Incentive spirometry Continuous O2, titrate to SPO2 greater than 88 Speech consult for potential aspiration (2) Sepsis Current Visit: Yes Status: Acute Assessment and plan: Sepsis secondary to hospital-acquired pneumonia Patient received 1 L IV fluid and ED, now on maintenance fluids Broad-spectrum antibiotics as above Lactic acid less than 2 Continue to monitor Qualifiers: Sepsis type: sepsis due to unspecified organism Qualified Code(s): A41.9 - Sepsis, unspecified organism (3) Acute respiratory failure with hypoxia Current Visit: Yes Status: Acute Assessment and plan: Acute hypoxic respiratory failure in setting hospital-acquired pneumonia Treatment as above (4) COPD (chronic obstructive pulmonary disease) Current Visit: Yes Status: Acute Assessment and plan: COPD with acute exacerbation secondary to hospital-acquired pneumonia Treatment as above Qualifiers: COPD type: COPD with acute exacerbation Qualified Code(s): J44.1 - Chronic obstructive pulmonary disease with (acute) exacerbation (5) Poor nutrition Current Visit: Yes Status: Acute Assessment and plan: Poor nutritional intake, likely secondary to sepsis and recent surgery We will consult nutrition and replace electrolytes (6) Hypokalemia Current Visit: Yes Status: Acute Assessment and plan: Severe Hypokalemia (K 2.9) on arrival, likely secondary to poor nutritional intake IV replacement with K Phos and K Cl Cardiac monitoring Recheck K this evening (7) Hypomagnesemia Current Visit: Yes Status: Acute Assessment and plan: Severe hypomagnesemia, which we secondary to poor nutritional intake IV repletion with 4 g magnesium sulfate (8) Hyponatremia Current Visit: Yes Status: Acute Assessment and plan: Mild hyponatremia likely secondary to dehydration and poor nutritional intake Fluid resuscitation (9) Hypophosphatasia Current Visit: Yes Status: Acute Assessment and plan: Hypophosphatemia, severe secondary to poor nutritional intake IV replacement with K-Phos (10) Obesity (BMI 30-39.9) Current Visit: No Status: Chronic (11) Status post total right knee replacement Current Visit: No Status: Acute Assessment and plan: Wound appears to be healing well, no obvious sign of infection Monitor at this time, treat pain as needed (12) Tobacco dependence Current Visit: No Status: Chronic Assessment and plan: Nicotine patches (13) Urinary tract infection Current Visit: Yes Status: Suspected Assessment and plan: UA demonstrates possible signs of UTI, although patient is without symptoms It is unclear whether or not there is presence of a UTI at this time The patient is on broad-spectrum antibiotic that would cover for possible UTI We will continue to monitor. Qualifiers: Urinary tract infection type: acute cystitis Hematuria presence: without hematuria Qualified Code(s): N30.00 - Acute cystitis without hematuria (14) DVT prophylaxis Current Visit: No Status: Acute Assessment and plan: SQ Heparin - Time Spent With Patient Total time spent is greater than 50% in coordination of care (as documented) at patient's floor/unit and/or counseling patient:
[2019-02-19] MEDS ORDERED: Potassium Phosphate 44 MEQ in 0.9 % Sodium Chloride 250 ML IVPB ONE (15:57)
[2019-02-19] MEDS ORDERED: *HR* LORazepam 1 MG TABLET PO PRN (16:00)
[2019-02-19] MEDS ORDERED: Aztreonam 2,000 MG in Water for inj. (sterile) 20 ML 20 ML IVP SCH (16:00)
[2019-02-19] MEDS ORDERED: Ipratropium/Albuterol Neb 3 ML IH PRN (16:06)
[2019-02-19] MEDS: Cefepime HCl 2,000 MG in Water for inj. (sterile) 20 ML 20 ML IVP SCH ×2 (18:33→23:59)
[2019-02-19] MEDS: Levofloxacin 750 MG/150 ML 750 MG/150 ML BAG IVPB SCH (18:34)
[2019-02-19] MEDS: Ipratropium/Albuterol Neb 3 ML IH SCH ×2 (20:29→23:37)
[2019-02-19] MEDS: *HR* Heparin 5,000 UNIT/ML VIAL SQ SCH (21:28)
[2019-02-19] MEDS: carBAMazepine 200 MG TABLET PO SCH (21:28)
--- NOTE | 2019-02-19 22:14 | Event Note ---
Date of Encounter: 02/19/19 Time of Encounter: 22:00 22:00 Patient has bilateral leg pain, right worse than left. Patient had right knee replacement on January 27 and was doing well until current admission even walking without her cane. She states since she started getting sick she has not been on her feet often. On exam she had calf tenderness bilaterally right worse than left and positive homans sign on the right. Will order bilateral lower extremity Doppler to rule out DVT and pain medication as needed. update: 23:00 Doppler preliminary results negative for DVT and SVT bilaterally Continue pain medication as needed
[2019-02-19] MEDS ORDERED: Acetaminophen IV 1,000 MG/100 ML INFUS..BTL IVPB PRN (22:29)
[2019-02-20] MEDS: Aztreonam 2,000 MG in Water for inj. (sterile) 20 ML 20 ML IVP SCH ×2 (01:23→09:34)
[2019-02-20 03:13] LABS: Acinetobacter baumannii by PCR Not Detected (Not Detect); Candida albicans by PCR Not Detected (Not Detect); Candida glabrata by PCR Not Detected (Not Detect); Candida krusei by PCR Not Detected (Not Detect); Candida parapsilosis by PCR Not Detected (Not Detect); Candida tropicalis by PCR Not Detected (Not Detect); Enterobacter cloacae Cmplx PCR Not Detected (Not Detect); Enterobacteriaceae by PCR Not Detected (Not Detect); Enterococcus by PCR Not Detected (Not Detect); Escherichia coli by PCR Not Detected (Not Detect); Klebsiella oxytoca by PCR Not Detected (Not Detect); Klebsiella pneumoniae by PCR Not Detected (Not Detect); Proteus by PCR Not Detected (Not Detect); Pseudomonas aeruginosa by PCR Not Detected (Not Detect); Serratia marcescens by PCR Not Detected (Not Detect); Staphylococcus aureus by PCR Not Detected (Not Detect); Staphylococcus by PCR Not Detected (Not Detect); Streptococcus agalactiae(B)PCR Not Detected (Not Detect); Streptococcus by PCR DETECTED (Not Detect); Streptococcus pneumoniae PCR DETECTED (Not Detect); Streptococcus pyogenes (A) PCR Not Detected (Not Detect)
[2019-02-20] MEDS: Ipratropium/Albuterol Neb 3 ML IH SCH ×6 (04:28→23:05)
[2019-02-20] MEDS: *HR* Heparin 5,000 UNIT/ML VIAL SQ SCH ×3 (05:31→20:56)
[2019-02-20] MEDS: 0.9 % Sodium Chloride 1,000 ML IVC SCH (06:56)
[2019-02-20 06:57] LABS: Basophils % 0.2 %; Hematocrit 26.4 % (35.3-44.9); Hemoglobin 8.5 g/dL (11.5-15.4); Immature Granulocytes % 0.7 % (0-4); Lymphocytes # 0.9 K/mcL (0.6-4.6); Lymphocytes % 6.8 %; Mean Corpuscular HGB Conc 32.2 g/dL (31.6-35.5); Mean Corpuscular Volume 96.4 fL (83.0-100.0); Mean Platelet Volume 9.6 fL (9.4-12.4); Monocytes # 0.7 K/mcL (0.0-1.3); Monocytes % 5.1 %; Neutrophils # 11.1 K/mcL (1.6-8.9); Platelet Count 214 K/mcL (140-400); Red Blood Count 2.74 M/mcL (3.82-4.97); Red Cell Distribution Width 13.7 % (11.5-14.5); Segmented Neutrophils % 87.2 %
[2019-02-20 07:05] LABS: INR 1.5; Prothrombin Time 17.3 Seconds (9.4-12.1)
[2019-02-20 07:16] LABS: Alanine Aminotransferase 11 Units/L (7-52); Albumin 3.2 g/dL (3.5-5.7); Albumin/Globulin Ratio 1.3 (1.1-2.2); Alkaline Phosphatase 131 Units/L (34-104); Aspartate Amino Transferase 9 Units/L (13-39); BUN/Creatinine Ratio 20 (6-26); Bilirubin,Total 0.5 mg/dL (0.3-1.0); Blood Urea Nitrogen 9 mg/dL (6-20); Calcium 8.5 mg/dL (8.6-10.3); Carbon Dioxide 26 mEq/L (23-29); Chloride 101 mEq/L (98-107); Globulin 2.5 g/dL (2.4-3.5); Glucose 121 mg/dL (70-105); Magnesium 2.4 mg/dL (1.6-2.6); Osmolality,Calculated 284 (280-300); Phosphorous 2.7 mg/dL (2.7-4.5); Potassium 3.2 mEq/L (3.5-5.1); Sodium 137 mEq/L (136-145); Total Protein 5.7 g/dL (6.4-8.9); eGFR For Non-African Americans > 60 (> 60)
--- NOTE | 2019-02-20 08:04 | Internal Med Progress Note ---
<Maury Laguerre - Last Filed: 02/20/19 14:32> Hospitalist Progress Note - Encounter Date of Encounter: 02/20/19 Time of Encounter: 09:20 - Subjective Interval History: The patient is resting in bed at time of examination. She says that she is feeling better today, and her energy has returned and that she has also had more of an appetite. She denies any pain. She says she is coughing a bit more today. - Exam Vitals: Temp Pulse Resp BP Pulse Ox 97.9 F 82 22 129/70 96 02/20/19 07:12 02/20/19 07:12 02/20/19 07:25 02/20/19 07:12 02/20/19 07:25 Exam: Gen: Vitals noted. No acute distress. Eyes: anicteric sclerae, moist conjunctivae; no lid-lag; Pupils equal and reactive to light HENT: Atraumatic; oropharynx clear with moist mucous membranes and no mucosal ulcerations; normal hard and soft palate Neck: Trachea midline; supple, no thyromegaly or lymphadenopathy Cardiac: RRR, no murmur, +S1/S2 Pulmonary: Diminished in the right upper quadrant, otherwise clear to auscultation Abdomen: soft, nontender, no guarding. No masses or hepatosplenomegaly MSK: ROM intact, no joint swelling noted Extremities: no BLE edema, nontender calf, no cyanosis or clubbing Skin: Normal temperature, turgor and texture; no rash, ulcers or subcutaneous nodules Neuro: moves all extremities, no focal deficits. Psych: Appropriate mood and behavior. A&Ox3 - Assessment and Plan (1) Sepsis Current Visit: Yes Status: Acute Assessment and Plan: Sepsis secondary to strep pneumoniae pneumonia Patient received 1 L IV fluid and ED, now on maintenance fluids Narrow antibiotics as above Lactic acid less than 2 Continue to monitor (2) Urinary tract infection Current Visit: Yes Status: Suspected Assessment and Plan: UA demonstrates possible signs of UTI, although patient is without symptoms Urine culture positive for GNR >100k CFU Patient is currently treated with rocephin for PNA, will cover UTI (3) COPD (chronic obstructive pulmonary disease) Current Visit: Yes Status: Acute Assessment and Plan: COPD with acute exacerbation secondary to pneumonia Treatment as above (4) Poor nutrition Current Visit: Yes Status: Acute Assessment and Plan: Poor nutritional intake, likely secondary to sepsis and recent surgery, improving We will consult nutrition and replace electrolytes (5) Hypokalemia Current Visit: Yes Status: Acute Assessment and Plan: Severe Hypokalemia (K 2.9) on arrival, likely secondary to poor nutritional intake Improved, Potassium improved to 3.1 Will replete with 40mg PO x2 Discontinue cardiac monitoring (6) Hypomagnesemia Current Visit: Yes Status: Resolved (7) Hyponatremia Current Visit: Yes Status: Resolved (8) Hypophosphatasia Current Visit: Yes Status: Resolved (9) Obesity (BMI 30-39.9) Current Visit: No Status: Chronic (10) Status post total right knee replacement Current Visit: No Status: Acute Assessment and Plan: Wound appears to be healing well, no obvious sign of infection Monitor at this time, treat pain as needed (11) Tobacco dependence Current Visit: No Status: Chronic Assessment and Plan: Nicotine patches (12) DVT prophylaxis Current Visit: No Status: Acute Assessment and Plan: SQ Heparin (13) Streptococcus pneumoniae pneumonia Current Visit: Yes Status: Acute Assessment and Plan: Streptococcal pneumonia Patient was recently admitted for total right knee replacement on 01/27/19 Presents now with fever, chills, tachycardia, hypoxic respiratory failure and sepsis CT chest demonstrates right upper lobe pneumonia with extensive infiltration and consolidation Blood cultures positive for S. Pneumoniae, antigen negative Speech consult negative for concern of aspiration Continue maintenance fluids at this time Continuous pulse oximetry at this time Stop vancomycin, zosyn, Levaquin at this time Start Rocephin, Antibiotic day 2 of 7 Duo nebs every 4 hours scheduled and when necessary Incentive spirometry Continuous O2, titrate to SPO2 greater than 88 - Time Spent with Patient Total time spent is greater than 50% in coordination of care (as documented) at patient's floor/unit and/or counseling patient: Internal Medicine: Result - Labs CBC & Chem 7: 02/20/19 06:14 02/20/19 06:14 Labs: Short CBC 02/19/19 02/20/19 Range/Units 12:32 06:14 WBC 14.7 H 12.7 H (4.3-11.1) K/mcL Hgb 9.6 L 8.5 L (11.5-15.4) g/dL Hct 28.3 L 26.4 L (35.3-44.9) % Plt Count 247 214 (140-400) K/mcL Neutrophils # 13.1 H 11.1 H (1.6-8.9) K/mcL BMP 02/19/19 02/19/19 02/20/19 12:32 20:19 06:14 Sodium 132 L 137 Potassium 2.9 L 3.1 L 3.2 L Chloride 94 L 101 Carbon Dioxide 30 H 26 BUN 5 L 9 Creatinine 0.49 L 0.45 L Glucose 147 H 121 H Calcium 9.3 8.5 L Cardiac Enzymes 02/19/19 Range/Units 12:32 Troponin I < 0.03 (< 0.04) ng/mL Liver Function 02/19/19 02/20/19 Range/Units 12:32 06:14 Total Bilirubin 1.1 H 0.5 (0.3-1.0) mg/dL Direct Bilirubin 0.5 H (0.0-0.2) mg/dL AST 11 L 9 L (13-39) Units/L ALT 14 11 (7-52) Units/L Alkaline Phosphatase 160 H 131 H (34-104) Units/L Albumin 3.7 3.2 L (3.5-5.7) g/dL Urine 02/19/19 Range/Units 13:12 Urine Color Raquel A (Yellow) Urine Clarity Clear (Clear) Urine pH 6.0 (5.0-8.0) pH Units Ur Specific [place] 1.025 (1.010-1.025) Urine Protein 100 H (Neg-Trace) mg/dL Urine Glucose (UA) Normal (Normal) mg/dL - ABG Interpretation ABG results: PT/INR, D-dimer PT 17.3 Seconds (9.4-12.1) H 02/20/19 06:14 - Impressions Impressions Chest X-Ray 02/19/19 11:58 IMPRESSION: Right upper lobe pneumonia. Continued plain film follow-up recommended to ensure resolution. D/ / Michi Kc MD / Michi Kc MD Interpreting Provider: Michi Kc MD Chest CTA 02/19/19 12:14 IMPRESSION: No evidence for pulmonary emboli. Right upper lobe infiltrate consistent with pneumonia. Left adrenal adenoma. D/ / 02/19/2019 14:39:49 Terrance Chisholm MD / bcaer Interpreting Provider: Terrance Chisholm MD Liver Ultrasound 02/19/19 14:17 IMPRESSION: Unremarkable right upper quadrant ultrasound. D/ / Terrance Chisholm MD / Terrance Chisholm MD Interpreting Provider: Terrance Chisholm MD Consult Discharge Plan - Plan Referrals: Tomas Hearn DO [Primary Care Provider] - <Satya Cuevas - Last Filed: 02/20/19 16:14> Hospitalist Progress Note - Encounter Date of Encounter: 02/20/19 - Assessment and Plan (1) Streptococcus pneumoniae pneumonia Current Visit: Yes Status: Acute (2) Urinary tract infection Current Visit: Yes Status: Suspected (3) Obesity (BMI 30-39.9) Current Visit: No Status: Chronic (4) Status post total right knee replacement Current Visit: No Status: Acute (5) Tobacco dependence Current Visit: No Status: Chronic (6) COPD (chronic obstructive pulmonary disease) Current Visit: Yes Status: Acute (7) Hyponatremia Current Visit: Yes Status: Resolved (8) Sepsis Current Visit: Yes Status: Acute (9) Hypomagnesemia Current Visit: Yes Status: Resolved (10) Hypokalemia Current Visit: Yes Status: Acute (11) Hypophosphatasia Current Visit: Yes Status: Resolved (12) Poor nutrition Current Visit: Yes Status: Acute Internal Medicine: Result - Labs CBC & Chem 7: 02/20/19 06:14 02/20/19 06:14 Labs: Short CBC 02/20/19 Range/Units 06:14 WBC 12.7 H (4.3-11.1) K/mcL Hgb 8.5 L (11.5-15.4) g/dL Hct 26.4 L (35.3-44.9) % Plt Count 214 (140-400) K/mcL Neutrophils # 11.1 H (1.6-8.9) K/mcL BMP 02/19/19 02/19/19 02/20/19 12:32 20:19 06:14 Sodium 132 L 137 Potassium 2.9 L 3.1 L 3.2 L Chloride 94 L 101 Carbon Dioxide 30 H 26 BUN 5 L 9 Creatinine 0.49 L 0.45 L Glucose 147 H 121 H Calcium 9.3 8.5 L Cardiac Enzymes 02/19/19 Range/Units 12:32 Troponin I < 0.03 (< 0.04) ng/mL Liver Function 02/19/19 02/20/19 Range/Units 12:32 06:14 Total Bilirubin 1.1 H 0.5 (0.3-1.0) mg/dL Direct Bilirubin 0.5 H (0.0-0.2) mg/dL AST 11 L 9 L (13-39) Units/L ALT 14 11 (7-52) Units/L Alkaline Phosphatase 160 H 131 H (34-104) Units/L Albumin 3.7 3.2 L (3.5-5.7) g/dL - ABG Interpretation ABG results: PT/INR, D-dimer PT 17.3 Seconds (9.4-12.1) H 02/20/19 06:14 - Attending Attestation Patient seen and examined independently, including review of objective data including labs, micro. I agree with plan of care as documented above by the resident with the following comments: Patient reports feeling better, stronger, increased appetite. She is no longer tachycardic or tachypneic, and O2 sats are improved. Blood cultures showing strep pneumonia bacteremia. Overall improving. Will de-escalate abx to Rocephin and check repeat set of cultures as well as TTE. Can further deescalate to PO therapy when sensitivities result. <Maury Laguerre - Last Filed: 02/20/19 14:32> (1) Sepsis Qualifiers: Sepsis type: sepsis due to unspecified organism Qualified Code(s): A41.9 - Sepsis, unspecified organism (2) Urinary tract infection Qualifiers: Urinary tract infection type: acute cystitis Hematuria presence: without hematuria Qualified Code(s): N30.00 - Acute cystitis without hematuria (3) COPD (chronic obstructive pulmonary disease) Qualifiers: COPD type: COPD with acute exacerbation Qualified Code(s): J44.1 - Chronic obstructive pulmonary disease with (acute) exacerbation (13) Streptococcus pneumoniae pneumonia Qualifiers: Laterality: right Lung location: upper lobe of lung Qualified Code(s): J13 - Pneumonia due to Streptococcus pneumoniae <Satya Cuevas - Last Filed: 02/20/19 16:14> (1) Streptococcus pneumoniae pneumonia Qualifiers: Laterality: right Lung location: upper lobe of lung Qualified Code(s): J13 - Pneumonia due to Streptococcus pneumoniae (2) Urinary tract infection Qualifiers: Urinary tract infection type: acute cystitis Hematuria presence: without hematuria Qualified Code(s): N30.00 - Acute cystitis without hematuria (6) COPD (chronic obstructive pulmonary disease) Qualifiers: COPD type: COPD with acute exacerbation Qualified Code(s): J44.1 - Chronic obstructive pulmonary disease with (acute) exacerbation (8) Sepsis Qualifiers: Sepsis type: sepsis due to unspecified organism Qualified Code(s): A41.9 - Sepsis, unspecified organism
[2019-02-20] MEDS: Cefepime HCl 2,000 MG in Water for inj. (sterile) 20 ML 20 ML IVP SCH (09:35)
[2019-02-20] MEDS: Levofloxacin 750 MG/150 ML 750 MG/150 ML BAG IVPB SCH (09:35)
[2019-02-20] MEDS: carBAMazepine 200 MG TABLET PO SCH ×2 (09:36→20:56)
[2019-02-20] MEDS: Venlafaxine XR (24 HR) 75 MG CAP.ER.24H PO SCH (09:37)
[2019-02-20] MEDS ORDERED: Melatonin 3 MG TABLET PO PRN (11:38)
[2019-02-20] MEDS: Letrozole 2.5 MG TABLET PO SCH (11:48)
[2019-02-20] MEDS ORDERED: *HR* OxyCODONE Immed Rel 5 MG TABLET PO ONE (12:05)
[2019-02-20] MEDS: cefTRIAXone 1,000 MG in 0.9 % Sodium Chloride Mini Bag 100 ML IVPB SCH (16:00)
[2019-02-20] MEDS: *HR* LORazepam 0.5 MG TABLET PO SCH ×2 (16:01→20:56)
[2019-02-20] MEDS ORDERED: Ketorolac 15 MG/ML VIAL IVP PRN (17:26)
[2019-02-20] MEDS ORDERED: OXYCODONE Oral CONC 10 MG/0.5 ML ORAL.SYG SL PRN (17:27)
[2019-02-20] MEDS ORDERED: *HR* OxyCODONE Immed Rel 5 MG TABLET PO PRN (17:27)
[2019-02-21] MEDS: Ipratropium/Albuterol Neb 3 ML IH SCH ×3 (04:23→11:37)
[2019-02-21] MEDS: *HR* Heparin 5,000 UNIT/ML VIAL SQ SCH (05:16)
[2019-02-21 05:53] LABS: Basophils % 0.1 %; Eosinophils % 0.5 %; Hematocrit 25.6 % (35.3-44.9); Hemoglobin 8.3 g/dL (11.5-15.4); Immature Granulocytes % 0.8 % (0-4); Lymphocytes # 0.7 K/mcL (0.6-4.6); Lymphocytes % 9.2 %; Mean Corpuscular HGB Conc 32.4 g/dL (31.6-35.5); Mean Corpuscular Hemoglobin 31.1 pg (28.0-33.3); Mean Corpuscular Volume 95.9 fL (83.0-100.0); Mean Platelet Volume 9.7 fL (9.4-12.4); Monocytes # 0.4 K/mcL (0.0-1.3); Monocytes % 4.8 %; Neutrophils # 6.7 K/mcL (1.6-8.9); Platelet Count 252 K/mcL (140-400); Red Blood Count 2.67 M/mcL (3.82-4.97); Red Cell Distribution Width 13.6 % (11.5-14.5); Segmented Neutrophils % 84.6 %
[2019-02-21 06:12] LABS: BUN/Creatinine Ratio 20 (6-26); Blood Urea Nitrogen 10 mg/dL (6-20); Calcium 8.7 mg/dL (8.6-10.3); Carbon Dioxide 25 mEq/L (23-29); Chloride 101 mEq/L (98-107); Glucose 121 mg/dL (70-105); Osmolality,Calculated 280 (280-300); Potassium 3.8 mEq/L (3.5-5.1); Sodium 135 mEq/L (136-145); eGFR For Non-African Americans > 60 (> 60)
[2019-02-21] MEDS ORDERED: cefTRIAXone 1,000 MG in Water for inj. (sterile) 20 ML 10 ML IVP SCH (09:00)
[2019-02-21] MEDS: carBAMazepine 200 MG TABLET PO SCH (10:01)
[2019-02-21] MEDS: Venlafaxine XR (24 HR) 75 MG CAP.ER.24H PO SCH (10:02)
[2019-02-21] MEDS: cefTRIAXone 1,000 MG in 0.9 % Sodium Chloride Mini Bag 100 ML IVPB SCH (10:02)
[2019-02-21] MEDS: Letrozole 2.5 MG TABLET PO SCH (10:02)
[2019-02-21] MEDS: *HR* LORazepam 0.5 MG TABLET PO SCH (10:02)
[2019-02-21 12:00] VITALS: BP 133/94
--- NOTE | 2019-02-21 12:02 | Event Note ---
Date of Encounter: 02/21/19 Time of Encounter: 12:15 Patient seen as a courtesy visit Patient doing well and states she feels much better and ready to go home. Incision and knee appearing to heal well Honeycomb dressing in place Knee motion improved Leave honeycomb dressing in place until you get home, then remove. Keep outpatient follow up with Dr. Jose next week as scheduled.
--- NOTE | 2019-02-21 12:09 | Discharge Summary ---
Date of Encounter: 02/21/19 Time of Encounter: 12:06 - Discharge Diagnosis (1) Streptococcus pneumoniae pneumonia Priority: Primary Status: Acute Qualifiers: Laterality: right Lung location: upper lobe of lung Qualified Code(s): J13 - Pneumonia due to Streptococcus pneumoniae Hospital course: Dear Doctors, I recently had the opportunity to care for this patient during their recent hospital stay at [facility]. Aide Norris is a 58 F w hx COPD, R breast ca s/p mastectomy, OA s/p R TKA last month, who presented at time of admission with fevers for 3-4 days, with subsequently development of cough and sputum production as well as low O2 sats in the 80s when checked at home. In the ED, pt HR 100s and T'103. Labs showing WBC 15, Hb 9, K 2.9, P 2.9, and Mg 1.5. CXR showing RUL infiltrate, and CTPE negative for PE but confirmed RUL PNA. UA w nitrites and LE, reflexed to culture. Blood cultures obtained, fluids given, and started on broad spectrum abx. In the hospital, blood cultures grew strep pneumo resistant only to macrolides. UCx growing pansensitive E coli. Abx narrowed to levaquin with continued patient improvement. Repeat BCx ngtd, and TTE unremarkable for vegetations. Pt will complete 10 day course of abx and follow up PCP. Dx: Strep pneumo pneumonia and bacteremia, sepsis, low magnesium potassium phosphorus Pertinent tests/consults: blood cultures growing strep pneumo, CTPE showing RUL infiltrate Follow up: PCP 1 week Tests pending: none Med changes: levaquin 750 daily, last dose 03/01 Mental status: awake, fully oriented Code status: Social Service Worker spent on discharge: 35 minutes It has been my pleasure participating in this patient's care. Please contact me with any questions or concerns regarding their hospital stay. Sincerely, Satya Cuevas MD - Discharge Medications Prescriptions: New levoFLOXacin [Levaquin] 750 mg PO DAILY #8 tablet Continued Omeprazole [PriLOSEC] 20 mg PO DAILY carBAMazepine [Tegretol] 600 mg PO BID Escitalopram [Lexapro] 20 mg PO DAILY Venlafaxine HCl [Effexor Xr] 75 mg PO DAILY #30 cap.er.24h Letrozole [Femara] 2.5 mg PO DAILY #30 tablet Calcium Carbonate [Calcium] 500 mg PO DAILY Multivitamin [One Daily] 1 tab PO DAILY Alendronate Sodium [Fosamax] 70 mg PO TAVARES Albuterol Neb [Proventil Neb] 2.5 mg IH TID PRN PRN Reason: Shortness Of Breath LORazepam [Ativan] 1 mg PO BID PRN PRN Reason: Anxiety Home Medications: Omeprazole [PriLOSEC] 20 mg PO DAILY 03/16/16 [History] carBAMazepine [Tegretol] 600 mg PO BID 03/16/16 [History] Escitalopram [Lexapro] 20 mg PO DAILY 06/01/16 [History] Venlafaxine HCl [Effexor Xr] 75 mg PO DAILY #30 cap.er.24h 10/18/18 [Rx] Letrozole [Femara] 2.5 mg PO DAILY #30 tablet 11/26/18 [Rx] Calcium Carbonate [Calcium] 500 mg PO DAILY 01/27/19 [History] Multivitamin [One Daily] 1 tab PO DAILY 01/27/19 [History] Albuterol Neb [Proventil Neb] 2.5 mg IH TID PRN 02/19/19 [History] Alendronate Sodium [Fosamax] 70 mg PO TAVARES 02/19/19 [History] LORazepam [Ativan] 1 mg PO BID PRN 02/19/19 [History] levoFLOXacin [Levaquin] 750 mg PO DAILY #8 tablet 02/21/19 [Rx] Allergies/Adverse Reactions: Allergy/AdvReac Type Severity Reaction Status Date / Time bupropion [From Wellbutrin] Allergy Anaphylaxis Verified 02/19/19 19:51 celecoxib [From Celebrex] Allergy See Verified 02/19/19 19:51 Comments Penicillins [PCN] Allergy Hives Verified 02/19/19 19:51 ANAPHYLAXIS Pneumococcal Vaccine Allergy Rash Verified 02/19/19 19:51 Sulfa (Sulfonamide Allergy See Verified 02/19/19 19:51 Antibiotics) Comments Date of admission: 02/19/19 17:45 Primary care physician: Tomas Hearn DO Consults: 02/19/19 17:09 Consult to Nutrition [CONS] Routine Comment: Consulting Provider: NUTRITION Reason for Dietary Consult: PO Supplementation 02/20/19 10:14 Consult to Physical Therapy [CONS] Routine Comment: Evaluate, develop and implement POC Reason for Consult: weakness, pna, recent right total knee Does patient have active BEDREST order?: No Is patient medically & hemodynamically stable?: Yes - Constitutional Vitals: Temp Pulse Resp BP Pulse Ox 98.2 F 95 18 133/94 93 02/21/19 11:58 02/21/19 11:58 02/21/19 11:58 02/21/19 11:58 02/21/19 11:58 Exam: General: NAD, good eye contact, well appearing Thoracic: Normal breath sounds b/l, no wheezing or crackles Cardio: Normal S1 and S2, regular rate and rhythm Abdomen: Soft, nontender Extremities: Warm, well perfused. DP pulses 2+ b/l. No edema. Neuro: Awake, fully oriented. Speech fluent - Patient Status Disposition: Home, Self-Care Condition: Fair Functional capacity at discharge: independent ambulation Overall status at discharge: patient is progressing back to baseline - Discharge Instructions Instructions: Levofloxacin (By mouth), How to Stop Smoking (DC), Urinary Tract Infection in Women (DC), Cigarette Smoking and Your Health (GEN), Chronic Obstructive Pulmonary Disease (DC), Sepsis (DC) Follow Up With: Tomas Hearn DO [Primary Care Provider] - 02/24/19 1:00 pm (called to make appt at [id number], no answer; will call again later) - Diet and Activity Activity: resume usual activities as tolerated Diet: advance to your usual diet
[2019-02-21] MEDS ORDERED: levoFLOXacin 750 MG TABLET PO SCH (12:15)
--- NOTE | 2019-02-21 12:53 | Physician Discharge Referral ---
Home Health/Hosp Referral Info Transfer to: Home Health Provider in Charge Post Discharge: PCP - Diagnosis (1) Streptococcus pneumoniae pneumonia Status: Acute - Respiratory Orders Smoking Cessation: Smoking cessation has been advised. For more information, call the [place] Tobacco Quit Line at 2-075-FQQZ-NOW. - Services Needed Following services are medically necessary services: Nursing, Physical Therapy, Occupational Therapy Other Treatments: resume previous orders - Transfer Medications Prescriptions: levoFLOXacin [Levaquin] 750 mg PO DAILY #8 tablet Home Medications: Omeprazole [PriLOSEC] 20 mg PO DAILY 03/16/16 [History] carBAMazepine [Tegretol] 600 mg PO BID 03/16/16 [History] Escitalopram [Lexapro] 20 mg PO DAILY 06/01/16 [History] Venlafaxine HCl [Effexor Xr] 75 mg PO DAILY #30 cap.er.24h 10/18/18 [Rx] Letrozole [Femara] 2.5 mg PO DAILY #30 tablet 11/26/18 [Rx] Calcium Carbonate [Calcium] 500 mg PO DAILY 01/27/19 [History] Multivitamin [One Daily] 1 tab PO DAILY 01/27/19 [History] Albuterol Neb [Proventil Neb] 2.5 mg IH TID PRN 02/19/19 [History] Alendronate Sodium [Fosamax] 70 mg PO TAVARES 02/19/19 [History] LORazepam [Ativan] 1 mg PO BID PRN 02/19/19 [History] levoFLOXacin [Levaquin] 750 mg PO DAILY #8 tablet 02/21/19 [Rx] Allergies/Adverse Reactions: Allergy/AdvReac Type Severity Reaction Status Date / Time bupropion [From Wellbutrin] Allergy Anaphylaxis Verified 02/19/19 19:51 celecoxib [From Celebrex] Allergy See Verified 02/19/19 19:51 Comments Penicillins [PCN] Allergy Hives Verified 02/19/19 19:51 ANAPHYLAXIS Pneumococcal Vaccine Allergy Rash Verified 02/19/19 19:51 Sulfa (Sulfonamide Allergy See Verified 02/19/19 19:51 Antibiotics) Comments Certification: Further, I certify that my clinical findings support that this patient is homebound (i.e. absences from home require considerable and taxing effort and are for medical reasons or sabianism services or infrequently or short duration when for other reasons) because: Homebound Reason: Leaving home requires considerable and taxing effort due to condition Attestation: My signature below is to certify that this patient is under my care and that I, or nurse practitioner, or a physician's reference assistant working with me, has a [id number] encounter with this patient.
[2019-02-21 16:50] LABS: % Iron Saturation 8 % (15-50); Iron 18 mcg/dL (50-170); Transferrin 161 mg/dL (203-362)
[2019-02-21 18:02] LABS: Folate 14.9 ng/mL (3.0-16.0)
[2019-02-22 04:58] LABS: Ferritin 221 ng/mL (10-120)
== END 2019-02-21 16:15 | disposition home or self-care (01) | DRG 871 ==
LOC: EMEROOARM 11:40 → 2NENU 11:40 → SUATTDRO 16:11 → 2NENU 18:19
PROVIDERS: ADMIT Internal Medicine; ATTEND Internal Medicine

== ENCOUNTER 2020-01-26 19:59 | Observation (INO) ==
[2020-01-26] MEDS ORDERED: Aspirin 325 MG TABLET PO ONE (20:16)
[2020-01-26] MEDS ORDERED: Ipratropium/Albuterol Neb 3 ML IH ONE (20:16)
[2020-01-26] MEDS ORDERED: Isovue-370 500 ML BOTTLE IVP ONE (20:16)
[2020-01-26 20:27] LABS: Basophils % 0.6 %; Eosinophils # 0.1 K/mcL (0.0-0.6); Eosinophils % 0.9 %; Hematocrit 36.3 % (35.3-44.9); Hemoglobin 12.2 g/dL (11.5-15.4); Immature Granulocytes % 0.3 % (0-4); Lymphocytes # 1.4 K/mcL (0.6-4.6); Lymphocytes % 21.1 %; Mean Corpuscular HGB Conc 33.6 g/dL (31.6-35.5); Mean Corpuscular Hemoglobin 30.4 pg (28.0-33.3); Mean Corpuscular Volume 90.5 fL (83.0-100.0); Mean Platelet Volume 9.2 fL (9.4-12.4); Monocytes # 0.5 K/mcL (0.0-1.3); Monocytes % 8.2 %; Neutrophils # 4.5 K/mcL (1.6-8.9); Platelet Count 255 K/mcL (140-400); Red Blood Count 4.01 M/mcL (3.82-4.97); Red Cell Distribution Width 13.5 % (11.5-14.5); Segmented Neutrophils % 68.9 %; White Blood Count 6.5 K/mcL (4.3-11.1)
[2020-01-26 20:46] LABS: BUN/Creatinine Ratio 14 (6-26); Blood Urea Nitrogen 9 mg/dL (6-20); Calcium 9.3 mg/dL (8.6-10.3); Carbon Dioxide 29 mEq/L (23-29); Chloride 101 mEq/L (98-107); Glucose 134 mg/dL (70-105); Osmolality,Calculated 287 (280-300); Potassium 3.8 mEq/L (3.5-5.1); Sodium 138 mEq/L (136-145); eGFR For African Americans > 60 (> 60); eGFR For Non-African Americans > 60 (> 60)
[2020-01-26 20:47] LABS: Troponin I < 0.03 ng/mL (< 0.04)
[2020-01-26] MEDS ORDERED: methylPREDNISolone 125 MG/2 ML VIAL IVP ONE (22:21)
[2020-01-27] MEDS ORDERED: Acetaminophen 325 MG TABLET PO PRN (00:10)
[2020-01-27] MEDS ORDERED: Ondansetron 4 MG/2 ML VIAL IVP PRN (00:10)
[2020-01-27] MEDS ORDERED: Naloxone 0.4 MG/ML INJ IVP PRN (00:10)
[2020-01-27] MEDS ORDERED: *HR* HYDROcodone/Acet 5/325 mg TABLET PO PRN (00:10)
[2020-01-27] MEDS ORDERED: *HR* LORazepam 1 MG TABLET PO PRN (00:12)
[2020-01-27] MEDS ORDERED: Nicotine 21 MG PATCH.TD24 TD SCH (00:15)
[2020-01-27 01:09] LABS: Basophils % 0.5 %; Eosinophils % 0.2 %; Hematocrit 35.2 % (35.3-44.9); Hemoglobin 11.6 g/dL (11.5-15.4); Immature Granulocytes % 0.3 % (0-4); Lymphocytes # 0.7 K/mcL (0.6-4.6); Lymphocytes % 10.8 %; Mean Corpuscular Hemoglobin 29.9 pg (28.0-33.3); Mean Corpuscular Volume 90.7 fL (83.0-100.0); Mean Platelet Volume 9.4 fL (9.4-12.4); Monocytes # 0.2 K/mcL (0.0-1.3); Monocytes % 3.7 %; Neutrophils # 5.5 K/mcL (1.6-8.9); Platelet Count 217 K/mcL (140-400); Red Blood Count 3.88 M/mcL (3.82-4.97); Red Cell Distribution Width 13.6 % (11.5-14.5); Segmented Neutrophils % 84.5 %; White Blood Count 6.5 K/mcL (4.3-11.1)
[2020-01-27 01:20] LABS: Prothrombin Time 11.1 Seconds (9.4-12.1)
[2020-01-27 01:26] LABS: BUN/Creatinine Ratio 16 (6-26); Blood Urea Nitrogen 9 mg/dL (6-20); Calcium 9.1 mg/dL (8.6-10.3); Carbon Dioxide 27 mEq/L (23-29); Chloride 100 mEq/L (98-107); Chol/HDL Ratio 2.5 (0-4.9); Cholesterol 192 mg/dL (< 200); Glucose 147 mg/dL (70-105); HDL Cholesterol 78 mg/dL (40-59); LDL Cholesterol,Calculated 80 mg/dL (0-99); Magnesium 1.8 mg/dL (1.6-2.6); Osmolality,Calculated 281 (280-300); Potassium 3.8 mEq/L (3.5-5.1); Sodium 135 mEq/L (136-145); Triglycerides 170 mg/dL (< 150); eGFR For African Americans > 60 (> 60); eGFR For Non-African Americans > 60 (> 60)
[2020-01-27] MEDS ORDERED: Albuterol 2.5 MG/3 ML NEBULIZER IH PRN (03:55)
[2020-01-27] MEDS: Ipratropium/Albuterol Neb 3 ML IH SCH ×3 (04:08→16:14)
[2020-01-27] MEDS ORDERED: Regadenoson 0.4 MG/5 ML SYRINGE IVP ONE (08:23)
[2020-01-27] MEDS ORDERED: lisinopriL 10 MG TABLET PO SCH (09:00)
[2020-01-27] MEDS ORDERED: Doxycycline 100 MG CAPSULE PO SCH (09:00)
[2020-01-27] MEDS ORDERED: predniSONE 20 MG TABLET PO SCH (09:00)
[2020-01-27] MEDS ORDERED: carBAMazepine 200 MG TABLET PO SCH (09:00)
[2020-01-27] MEDS ORDERED: ARIPiprazole 10 MG TABLET PO SCH (09:00)
[2020-01-27] MEDS ORDERED: Multivit/Ca/Min/Fe/FA 1 TAB TABLET PO SCH (12:00)
[2020-01-27 16:05] VITALS: BP 165/83
== END 2020-01-27 16:43 | disposition home or self-care (01) ==
LOC: 3BNU 19:59 → EMEROOARM 19:59 → 3BNU 22:57
PROVIDERS: ADMIT Internal Medicine; ATTEND Internal Medicine

== ENCOUNTER 2021-03-21 20:47 | Observation (INO) ==
[2021-03-21 21:54] LABS: Basophils % 0.3 %; Eosinophils % 0.2 %; Hematocrit 37.2 % (35.3-44.9); Hemoglobin 12.7 g/dL (11.5-15.4); Immature Granulocytes % 0.4 % (0-4); Lymphocytes # 0.8 K/mcL (0.6-4.6); Lymphocytes % 6.4 %; Mean Corpuscular HGB Conc 34.1 g/dL (31.6-35.5); Mean Corpuscular Volume 90.7 fL (83.0-100.0); Mean Platelet Volume 9.4 fL (9.4-12.4); Monocytes # 0.5 K/mcL (0.0-1.3); Monocytes % 4.2 %; Neutrophils # 11.4 K/mcL (1.6-8.9); Platelet Count 230 K/mcL (140-400); Red Cell Distribution Width 12.9 % (11.5-14.5); Segmented Neutrophils % 88.5 %; White Blood Count 12.9 K/mcL (4.3-11.1)
[2021-03-21 21:56] LABS: VBG HCO3 30 mEq/L (21-27); VBG PCO2 53 mmHg (41-51); VBG PH 7.36 pH Units (7.32-7.42); VBG PO2 85 mmHg (25-50)
[2021-03-21] MEDS ORDERED: Ipratropium/Albuterol Neb 3 ML IH ONE (22:00)
[2021-03-21 22:16] LABS: Alanine Aminotransferase 16 Units/L (7-52); Albumin/Globulin Ratio 1.5 (1.1-2.2); Alkaline Phosphatase 163 Units/L (34-104); Aspartate Amino Transferase 14 Units/L (13-39); BUN/Creatinine Ratio 8 (6-26); Bilirubin,Direct 0.1 mg/dL (0.0-0.2); Bilirubin,Indirect 0.2 mg/dL (0.0-1.0); Bilirubin,Total 0.3 mg/dL (0.3-1.0); Blood Urea Nitrogen 5 mg/dL (8-23); Calcium 9.4 mg/dL (8.6-10.3); Carbon Dioxide 30 mEq/L (23-29); Chloride 98 mEq/L (98-107); Globulin 2.7 g/dL (2.4-3.5); Glucose 141 mg/dL (70-105); Osmolality,Calculated 282 (280-300); Potassium 3.5 mEq/L (3.5-5.1); Sodium 136 mEq/L (136-145); Total Protein 6.7 g/dL (6.4-8.9); eGFR For African Americans > 60 (> 60); eGFR For Non-African Americans > 60 (> 60)
[2021-03-21] MEDS ORDERED: MetroNIDAZOLE 500 MG/100 ML 500 MG/100 ML BAG IVPB ONE (22:17)
[2021-03-21] MEDS ORDERED: cefTRIAXone 1,000 MG in Water for inj. (sterile) 10 ML IVP ONE (22:17)
[2021-03-21 22:31] LABS: Troponin I 0.04 ng/mL (< 0.04)
[2021-03-21] MEDS ORDERED: Aspirin 325 MG TABLET PO ONE (22:36)
[2021-03-22] MEDS ORDERED: Ondansetron 4 MG/2 ML VIAL IVP PRN (01:44)
[2021-03-22] MEDS ORDERED: Naloxone 0.4 MG/ML INJ IVP PRN (01:44)
[2021-03-22] MEDS ORDERED: 0.9 % Sodium Chloride 1,000 ML IVC SCH (01:45)
[2021-03-22] MEDS ORDERED: Azithromycin 500 MG in 0.9 % Sodium Chloride 250 ML IVPB SCH (02:00)
[2021-03-22] MEDS: Nicotine 14 MG PATCH.TD24 TD SCH ×2 (02:40→07:44)
[2021-03-22 04:06] LABS: Hemoglobin 12.3 g/dL (11.5-15.4); Mean Corpuscular HGB Conc 34.2 g/dL (31.6-35.5); Mean Corpuscular Hemoglobin 30.9 pg (28.0-33.3); Mean Corpuscular Volume 90.5 fL (83.0-100.0); Mean Platelet Volume 9.3 fL (9.4-12.4); Platelet Count 220 K/mcL (140-400); Red Blood Count 3.98 M/mcL (3.82-4.97); Red Cell Distribution Width 12.7 % (11.5-14.5); White Blood Count 9.2 K/mcL (4.3-11.1)
[2021-03-22 04:23] LABS: BUN/Creatinine Ratio 11 (6-26); Blood Urea Nitrogen 6 mg/dL (8-23); Calcium 9.2 mg/dL (8.6-10.3); Carbon Dioxide 27 mEq/L (23-29); Chloride 98 mEq/L (98-107); Glucose 209 mg/dL (70-105); Osmolality,Calculated 284 (280-300); Potassium 3.9 mEq/L (3.5-5.1); Sodium 135 mEq/L (136-145); eGFR For African Americans > 60 (> 60); eGFR For Non-African Americans > 60 (> 60)
[2021-03-22 04:34] LABS: Troponin I 0.04 ng/mL (< 0.04)
[2021-03-22] MEDS: Ipratropium/Albuterol Neb 3 ML IH SCH ×3 (05:45→11:09)
[2021-03-22] MEDS ORDERED: *HR* Heparin 5,000 UNIT/ML VIAL SQ SCH (06:00)
[2021-03-22] MEDS: MethylPREDNISolone 40 MG/ML VIAL IVP SCH ×2 (07:43→12:20)
[2021-03-22] MEDS ORDERED: MetroNIDAZOLE 500 MG/100 ML 500 MG/100 ML BAG IVPB SCH (08:00)
[2021-03-22] MEDS ORDERED: E-Z-PAQUE (BARIUM SULF) SUSP 1 BOTTLE PO ONE (09:33)
[2021-03-22] MEDS ORDERED: Simethicone/Sodium Bic/Citr Ac 1 EACH GRAN.EF.PK PO ONE (09:33)
[2021-03-22] MEDS ORDERED: E-Z-HD (BARIUM SULF) SUSPENSION PO ONE (09:33)
[2021-03-22 10:31] VITALS: BP 130/77
[2021-03-22] MEDS ORDERED: cefTRIAXone 1,000 MG in Water for inj. (sterile) 10 ML IVP SCH (21:00)
== END 2021-03-22 14:13 | disposition home or self-care (01) ==
LOC: CDU 20:47 → EMEROOARM 20:47 → CDU 03-22 01:28
PROVIDERS: ADMIT Internal Medicine; ATTEND Internal Medicine